=== PATIENT | male | born 1950 | race Caucasian/White ===

== ENCOUNTER 2020-03-21 07:48 | Outpatient (CLI) | payer MEDICARE, OTHER, SELFPAY ==
--- NOTE | 2020-03-21 | ECHO_ITS ---
Patient Info Name: Yuan Salvador Age: 69 years : 1950 Gender: Male Ht: 64 in Wt: 155 lbs BSA: 1.80 m2 HR: 78 bpm BP: 154 / 76 mmHg Heart Rhythm: Sinus Rhythm Technical Quality: Good Exam Date: 03/21/2020 8:26 AM Exam Location: [facility] Patient Status: Outpatient Admit Date: 03/21/2020 Staff Ordering Physician: Gemma Hanna MD Cloth Desizing Range Operator Chief: Ty Rivera, GILL, RT Attending Provider: Gemma Hanna MD Referring Physician: Cyndi AGUILAR; Exam Type: CA echo doppler color flow Study Info Indications I10 - Essential (primary) hypertension Complete two-dimensional, color flow and Doppler transthoracic echocardiogram is performed. Strain analysis performed. Summary 1. Complete two-dimensional, color flow and Doppler transthoracic echocardiogram is performed. 2. Left ventricular chamber dimension is normal. 3. Left ventricular systolic function is normal, estimated at 60-65%. 4. No regional wall motion abnormalities identified. 5. There is mild aortic valve sclerosis. Left Ventricle Left ventricular chamber dimension is normal. Left ventricular systolic function is normal, estimated at 60-65%. The left ventricular diastolic function is grade I diastolic dysfunction. No regional wall motion abnormalities identified. Right Ventricle Right ventricular chamber dimension is normal. Left Atria Left atrial chamber dimension is normal. Right Atria Right atrial chamber dimension is normal. Aortic Valve The aortic valve is trileaflet. There is mild aortic valve sclerosis. Pulmonic Valve The pulmonic valve is normal. Mitral Valve The mitral valve has normal leaflets. Tricuspid Valve The tricuspid valve leaflets are normal. Pericardium/Pleural The pericardium appears normal. Aorta The aortic root size at the sinus of Valsalva is normal. Left Ventricular Outflow Tract Name Value Normal LVOT 2D LVOT Diameter 2.0 cm LVOT Doppler LVOT Peak Gradient 4 mmHg LVOT Mean Gradient 2 mmHg LVOT VTI 19 cm LVOT VTI/AV VTI Ratio 0.7 LVOT Stroke Volume 59 ml LVOT CO 4.6 l/min LVOT CI 2.6 l/min/m2 Mitral Valve Name Value Normal MV Doppler MV Decel [place] 305 cm/s2 MV PHT 73 ms MV Area (PHT) 3.0 cm2 4.0-5.0 MV Diastolic Function MV E Peak Velocity 76 cm/s MV A Peak Velocity 93 cm/s MV E/A 0.8 MV Decel Time 250 ms M
== END 2020-03-21 07:49 | disposition home or self-care (01) ==
DX: E11.9 Type 2 diabetes mellitus without complications (principal); I35.0 Nonrheumatic aortic (valve) stenosis; I10 Essential (primary) hypertension
CPT/HCPCS: 93306

== ENCOUNTER 2020-05-05 11:33 | Outpatient (CLI) | payer MEDICARE, OTHER, SELFPAY | END 2020-05-05 11:34 | disposition home or self-care (01) | LOC: ANHCOVIDVC 11:33 | DX: Z23 Encounter for immunization (principal) | CPT/HCPCS: 0001A; 91300 ==

== ENCOUNTER 2020-05-26 11:29 | Outpatient (CLI) | payer MEDICARE, OTHER, SELFPAY | END 2020-05-26 11:30 | disposition home or self-care (01) | LOC: ANHCOVIDVC 11:29 | DX: Z23 Encounter for immunization (principal) | CPT/HCPCS: 0002A; 91300 ==

== ENCOUNTER 2021-01-13 10:35 | Emergency (ER) | payer MEDICARE, OTHER, SELFPAY ==
[2021-01-13 10:53] VITALS: BP 152/73; PULSE 74; RESP 18; TEMP 36.3; O2SAT 100
--- NOTE | 2021-01-13 11:11 | ED.URI ---
HPI - URI/Sore Throat General Chief Complaint: Upper Respiratory Infection Stated Complaint: nasal drainage,cough Source: patient and RN notes reviewed Limitations: no limitations History of Present Illness HPI Narrative: The vaccinated patient, non-smoker/nondrinker on several meds, presents with a week and a half history of yellow productive cough and nasal drip. No fever, sore throat, earache, loss of taste/smell, S OB, wheezing, CP, calf pain/edema, blood. Symptoms are mild, somewhat worse at night Related Data Home Medications Medication Instructions Recorded Confirmed aspirin 01/13/21 cetirizine mg 01/13/21 losartan 01/13/21 metformin mg PO 01/13/21 triamcinolone acetonide TOPICAL 01/13/21 Allergies Allergy/AdvReac Type Severity Reaction Status Date / Time balsam nile Allergy Unknown Unverified 08/25/14 11:57 doxycycline Allergy Unknown Unverified 08/25/14 11:57 formaldehyde Allergy Unknown Unverified 08/25/14 11:57 fusidic acid Allergy Unknown Unverified 08/25/14 11:57 nickel Allergy Unknown Unverified 08/25/14 11:58 gallates Allergy Unknown Uncoded 08/25/14 11:57 phenyl salicylate Allergy Unknown Uncoded 08/25/14 11:58 band aid AdvReac Unknown Uncoded 08/25/14 11:57 Review of Systems Review of Systems: General/Constitutional: No weight loss,fever Eyes: N0: Redness,discharge Ears/Nose/Throat: No: Epistaxis,ear discharge Respiratory: Denies: Hemoptysis Gastrointestinal: No Vomiting, Bleeding-rectal Skin: No Lumps, eruption Neurologic: No Focal Weakness,Sz Hematologic: Denies: Petechiae/Purpura Psychiatric: No: Suicida ideationl All Other Systems: Reviewed and Negative PMFSH Comments At time of signature, agree with nursing past medical, surgical, social and family history. There is no relevant family history pertinent to the presenting complaint Exam Narrative: General Appearance: Well appearing, Well nourished EYE: PERRLA, Conjunctiva clear Ears: Auditory canal normal, TM normal Nose: Rhinorrhea, Mucousal erythema Mouth/Throat: MM moist, Uvula midline, Pharyngeal erythema Neck: Supple, No adenopathy Respiratory: No respiratory distress, Breath sounds equal, Clear to auscultation Cardiovascular: RRR, No JVD Musculoskeletal: Non tender, Normal strength Skin: Warm, Dry Neurological: A&O x3, CN II-XII intact Psychiatric: Normal mood, Normal affect Course Vital Signs Vital signs: Vital Signs Temperature 97.4 F L 01/13/21 10:53 Pulse Rate 74 01/13/21 10:53 Respiratory Rate 18 01/13/21 10:53 Blood Pressure 152/73 H 01/13/21 10:53 Pulse Oximetry 100 01/13/21 10:53 Temperature 97.4 F L 01/13/21 10:53 Pulse Rate 74 01/13/21 10:53 Respiratory Rate 18 01/13/21 10:53 Blood Pressure 152/73 H 01/13/21 10:53 Pulse Oximetry 100 01/13/21 10:53 Discharge Plan Discharge Clinical Impression: Bronchitis Patient Disposition: Home, Self-Care Condition: Stable Instructions: Antibiotic Form, Acute Bronchitis (ED) Prescriptions: New benzonatate 100 mg capsule 100 mg PO TID PRN (Reason: cough) Qty: 20 RF: 2 codeine-guaifenesin 10-100 mg/5 mL liquid 7.5 ml PO Q6H PRN (Reason: cough) Qty: 118 RF: 0 cefuroxime axetil 500 mg tablet 500 mg PO Q12H Qty: 14 RF: 0 No Action losartan 50 mg tablet RF: 0 cetirizine 10 mg tablet RF: 0 aspirin 81 mg tablet,delayed release (DR/EC) RF: 0 triamcinolone acetonide 0.1 % ointment TOPICAL RF: 0 metformin 500 mg tablet extended release 24 hr PO RF: 0 Follow-up/Referrals: UNKNOWN,DOCTOR [Primary Care Provider] -
[2021-01-14 19:57] LABS: SARS-CoV-2 RNA PCR Negative
== END 2021-01-13 11:32 | disposition home or self-care (01) ==
PROVIDERS: Emergency Provider Emergency Medicine
DX: J40 Bronchitis, not specified as acute or chronic (principal); E78.00 Pure hypercholesterolemia, unspecified; M19.90 Unspecified osteoarthritis, unspecified site; Z20.822 Contact with and (suspected) exposure to COVID-19
CPT/HCPCS: 99213; C9803; G0463; U0003; U0005

== ENCOUNTER 2021-10-03 12:00 | Emergency (ER) | payer MEDICARE, OTHER, SELFPAY ==
--- NOTE | ~2021-10-03 | XR_ITS ---
EXAMINATION: XR chest 2V 10/03/2021 13:28 INDICATION: Cough and congestion. Covid positive. PROCEDURE: 2 view chest COMPARISON: No prior studies for comparison. FINDINGS: The lungs are clear. The cardiomediastinal silhouette is within normal limits. There are no pleural effusions. There is no pneumothorax suspected. IMPRESSION: 1: NO ACUTE CARDIOPULMONARY DISEASE. Reviewed, dictated and finalized at location B.
[2021-10-03 12:19] VITALS: BP 148/90; PULSE 86; RESP 16; TEMP 36.3; O2SAT 98
--- NOTE | 2021-10-03 12:24 | ED.URI ---
HPI - URI/Sore Throat General Chief Complaint: Upper Respiratory Infection Stated Complaint: cough,fever, stomach pain Source: patient, family, RN notes reviewed and old records reviewed Mode of arrival: ambulatory Limitations: no limitations History of Present Illness HPI Narrative: 71 year old male who presents to [facility] care with complaints of one week duration of cough, nasal congestion with drainage,nausea, sore throat, headaches and body aches. Patient states that he has been out of town for an [place] for 5 days and has not taken his Zyrtec medication since he forgot it at home. Patient reports that he has been running a fever around a 100 F since Saturday but has nasal congestion and drainage, cough prior to any temperature elevation.Patient reports that he has some dizziness when he stands for past few week and chest pain left upper chest around breast with certain movement and dyspnea at times. Patient reports that he has seen his doctor in past and had it checked out, denies any chest pain(pressure) for awhile. MD elicited complaint: fever, cough, sore throat, rhinorrhea and nasal congestion Pertinent past history: seasonal allergies Onset (ago): week(s) (1) Pain scale (0-10): 8 Able to tolerate fluids by mouth: Yes Treatments prior to arrival: other (cough medication) Related Data Home Medications Medication Instructions Recorded Confirmed cetirizine 10 mg tablet mg 01/13/21 losartan 50 mg tablet 01/13/21 metformin 500 mg tablet,extended mg PO 01/13/21 release 24 hr triamcinolone acetonide 0.1 % topical 01/13/21 topical ointment omeprazole 40 mg capsule,delayed 40 mg DIRECTED 10/03/21 10/03/21 release oxybutynin chloride 10 mg 10 mg PO DIRECTED 10/03/21 10/03/21 tablet,extended release 24 hr tamsulosin 0.4 mg capsule 0.4 mg PO DIRECTED 10/03/21 10/03/21 Allergies Allergy/AdvReac Type Severity Reaction Status Date / Time balsam nile Allergy Unknown Unverified 08/25/14 11:57 doxycycline Allergy Unknown Unverified 08/25/14 11:57 formaldehyde Allergy Unknown Unverified 08/25/14 11:57 fusidic acid Allergy Unknown Unverified 08/25/14 11:57 nickel Allergy Unknown Unverified 08/25/14 11:58 gallates Allergy Unknown Uncoded 08/25/14 11:57 phenyl salicylate Allergy Unknown Uncoded 08/25/14 11:58 band aid AdvReac Unknown Uncoded 08/25/14 11:57 Review of Systems Review of Systems: CONSTITUTIONAL: Positive for fever, chills, or sweats. EYES: Denies visual changes, redness, or discharge. ENT: Positive fro rhinorrhea, congestion, sore throat, no otalgia. CARDIOVASCULAR: Denies chest pain, palpitations, or edema. RESPIRATORY: Positive for cough some dyspnea stated with exertion. GASTROINTESTINAL: Denies abdominal pain, nausea, vomiting, or diarrhea. GENITOURINARY: Denies dysuria or hematuria. SKIN: Denies rash or itching. MUSCULOSKELETAL: Denies back pain, joint pain, positive for body aches NEUROLOGIC: positive for headache,no numbness, or weakness positive for fatigue PSYCHIATRIC: Denies anxiety or depression. All systems reviewed & are unremarkable except as noted in HPI and below PMFSH Past Medical History Medical History (Updated 10/03/21 @ 14:47 by Heather Brady NP) Diabetes GERD (gastroesophageal reflux disease) Hypertension Hypertrophy of prostate Kidney stone Surgical History Surgical History (Updated 10/03/21 @ 14:48 by Heather Brady NP) H/O foot surgery Social History Social History (Updated 10/03/21 @ 14:48 by Heather Brady NP) Smoking status: Never smoker Alcohol intake: current Alcohol use details: rarely 2X year Substance use: never Substance use type: does not use Living arrangements: with family Gender identity (if verbalized by the patient): Male Comments At time of signature, agree with nursing past medical, surgical, social and family history. There is no relevant family history pertinent to the presenting complaint Ex
== END 2021-10-03 14:13 | disposition home or self-care (01) ==
PROVIDERS: Emergency Provider Registered Nurse
DX: U07.1 COVID-19 (principal); E11.9 Type 2 diabetes mellitus without complications; K21.9 Gastro-esophageal reflux disease without esophagitis; I10 Essential (primary) hypertension; N40.0 Benign prostatic hyperplasia without lower urinary tract symptoms
CPT/HCPCS: 71046; 87426; 99213; C9803; G0463

== ENCOUNTER 2021-10-16 16:00 | Emergency (ER) | payer MEDICARE, OTHER, SELFPAY ==
--- NOTE | 2021-10-16 16:03 | ED.URI ---
HPI - URI/Sore Throat General Chief Complaint: Upper Respiratory Infection Stated Complaint: not feeling well Time Seen by Provider: 10/16/21 16:02 Source: patient Mode of arrival: ambulatory Limitations: no limitations History of Present Illness HPI Narrative: Mr. Salvador is a 71-year-old male patient presenting to the clinic today with complaints of not feeling well. He reports he had COVID approximately 2 weeks ago. He reports he still has a sore throat, headache, cough with a lot of phlegm production, dizziness, nausea, vomiting, diarrhea, and overall malaise and fatigue. Reports decrease in appetite as well. He denies any fever or chills. He reports his is at home with COVID at this time. Related Data Home Medications Medication Instructions Recorded Confirmed cetirizine 10 mg tablet 10 mg DIRECTED 01/13/21 10/16/21 losartan 50 mg tablet 50 mg DIRECTED 01/13/21 10/16/21 metformin 500 mg tablet,extended 500 mg PO TID 01/13/21 10/03/21 release 24 hr triamcinolone acetonide 0.1 % 0.1 applic topical DIRECTED 01/13/21 10/16/21 topical ointment omeprazole 40 mg capsule,delayed 40 mg DAILY 10/03/21 10/03/21 release oxybutynin chloride 10 mg 10 mg PO DAILY 10/03/21 10/03/21 tablet,extended release 24 hr tamsulosin 0.4 mg capsule 0.4 mg PO DAILY 10/03/21 10/03/21 betamethasone dipropionate 0.05 % 1 applic topical DIRECTED 10/16/21 10/16/21 topical cream calcium carb-magnesium carb 250 1 tablet PO DAILY 10/16/21 10/16/21 mg-300 mg tablet celecoxib 200 mg capsule (Celebrex) 200 mg PO DAILY 10/16/21 10/16/21 finasteride 5 mg tablet 5 mg DAILY 10/16/21 10/16/21 fluticasone propionate 50 1 spray intranasal DAILY 10/16/21 10/16/21 mcg/actuation nasal spray,suspension krill 1 cap PO DAILY 10/16/21 10/16/21 [id number] 300 mg-90 mg-24 mg-50 mg capsule (krill oil) Allergies Allergy/AdvReac Type Severity Reaction Status Date / Time balsam nile Allergy Unknown Verified 10/16/21 16:22 doxycycline Allergy Unknown Verified 10/16/21 16:22 formaldehyde Allergy Unknown Verified 10/16/21 16:22 fusidic acid Allergy Unknown Verified 10/16/21 16:22 nickel Allergy Unknown Verified 10/16/21 16:22 gallates Allergy Unknown Uncoded 10/16/21 16:22 phenyl salicylate Allergy Unknown Uncoded 10/16/21 16:22 band aid AdvReac Unknown Uncoded 10/16/21 16:22 Review of Systems Review of Systems: Pertinent positives per HPI. Patient denies any fever, chills, rash, visual changes, shortness of breath, chest pain, palpitations, constipation, abdominal pain, or any urinary issues. [facility] Past Medical History Medical History Diabetes GERD (gastroesophageal reflux disease) Hypertension Hypertrophy of prostate Kidney stone Surgical History Surgical History H/O foot surgery Social History Social History Smoking status: Never smoker Alcohol intake: current Alcohol use details: rarely 2X year Substance use: never Substance use type: does not use Gender identity (if verbalized by the patient): Male Comments At the time of my signature, I reviewed and agree with the nursing past medical, surgical, social, and family history. There is no relevant family history pertinent to the patient complaint. Exam Narrative: General: Well-developed, well nourished, in no apparent distress Head: Normocephalic, atraumatic Eyes: Pupils equally round and reactive to light bilaterally, EOM intact, sclera and conjunctive clear, no discharge, lids normal Ears: TMs intact and clear, ear canals clear, no drainage, grossly hearing normal. Nose: Nares patent, clear nasal discharge, moderate inflammation, no sinus tenderness. Mouth: Oral pharynx without lesions or masses, good dentition, MMM. Postnasal dri
[2021-10-16 16:12] VITALS: BP 148/72; PULSE 80; RESP 18; TEMP 36.2; O2SAT 99
[2021-10-16 16:38] LABS: Glucose Point of Care 130 mg/dl (65-105)
[2021-10-16 16:51] VITALS: BP 132/78; PULSE 78
[2021-10-16 16:53] VITALS: BP 139/72; PULSE 82
[2021-10-16 16:55] VITALS: BP 137/77; PULSE 73
== END 2021-10-16 17:15 | disposition home or self-care (01) ==
PROVIDERS: Emergency Provider Nurse Practitioner Family
DX: B34.9 Viral infection, unspecified (principal); Z86.16 Personal history of COVID-19; E11.9 Type 2 diabetes mellitus without complications; K21.9 Gastro-esophageal reflux disease without esophagitis; I10 Essential (primary) hypertension; N40.0 Benign prostatic hyperplasia without lower urinary tract symptoms; Z79.84 Long term (current) use of oral hypoglycemic drugs
CPT/HCPCS: 81003; 82948; 99213; G0463

== ENCOUNTER 2022-01-05 16:02 | Emergency (ER) | payer MEDICARE, OTHER, SELFPAY ==
[2022-01-05] VITALS (20 sets, daily range): BP systolic 121–136; BP diastolic 67–80; PULSE 76–87; RESP 16; TEMP 36.1; O2SAT 95–100
--- NOTE | ~2022-01-05 | XR_ITS ---
EXAMINATION: XR chest 2V DATE: 01/05/2022 17:16 INDICATION: Chest discomfort TECHNIQUE: PA and lateral views of the chest are obtained. COMPARISON: 10/03/2021 FINDINGS: The lungs are free of acute opacities. No pleural effusion or pneumothorax. The cardiomedia stinal silhouette is normal. There are bridging osteophytes at multiple levels in the spine, consiste nt with diffuse idiopathic skeletal hyperostosis (DISH). IMPRESSION: 1. No acute cardiopulmonary abnormality. Reviewed, dictated and finalized at location F. [facility] [employer]
--- NOTE | 2022-01-05 16:04 | ECG_ITS ---
Measurements Intervals [place] Rate: 81 P: 59 WA: 171 QRS: 37 QRSD: 88 T: 17 QT: 315 QTc: 366 Interpretive Statements SINUS RHYTHM CANNOT RULE OUT SEPTAL INFARCT, AGE INDETERMINATE BORDERLINE T WAVE ABNORMALITY- INFERIOR LEADS BASELINE WANDER- III, V3 ABNORMAL ECG NO PREVIOUS ECG AVAILABLE FOR COMPARISON Electronically Signed On 01-05-2022 16:26:59 [employer] by Jean-Pierre Pickering D.O.
[2022-01-05 16:20] LABS: Basophils Absolute Auto 0.1 K/mm3 (0.0-0.1); Basophils Percent Auto 0.6 % (0.2-1.2); Eosinophils Absolute Auto 0.1 K/mm3 (0-0.3); Eosinophils Percent Auto 0.6 % (0-4.4); Hematocrit 43.4 % (42.0-52.0); Hemoglobin 14.8 g/dL (14.0-18.0); Immature Granulocyte Absolute 0.03 K/mm3 (0.00-0.031); Immature Granulocyte Percent A 0.3 % (0-0.5); Lymphocytes Absolute Auto 1.72 K/mm3 (0.9-3.2); Lymphocytes Percent Auto 16.9 % (18.3-44.2); Mean Corpuscular HGB Conc 34.1 g/dl (32-36); Mean Corpuscular Hemoglobin 31.4 pg (26-34); Mean Corpuscular Volume 92.1 fl (80-100); Mean Platelet Volume 9.4 fl (7.4-10.4); Monocytes Absolute Auto 0.6 K/mm3 (0.1-0.6); Monocytes Percent Auto 5.7 % (2.6-8.5); Neutrophils Absolute Auto 7.7 K/mm3 (1.3-6.7); Neutrophils Percent Auto 75.9 % (45.5-73.1); Platelet Count Result 358 k/mm3 (150-375); Red Blood Count 4.71 M/mm3 (4.6-6.20); Red Cell Distribution Width 11.9 % (11.5-14.5); White Blood Count 10.2 K/mm3 (4.5-10.0)
[2022-01-05 16:34] LABS: Alanine Aminotransferase 36 U/L (6-50); Albumin Level 4.5 g/dL (3.5-5.1); Alkaline Phosphatase 74 U/L (38-126); Anion Gap 12 mmol/L (8-16); Aspartate Amino Transferase 29 U/L (17-59); Bilirubin,Total 0.7 mg/dL (0.2-1.3); Blood Urea Nitrogen 15 mg/dL (9-20); Calcium 9.7 mg/dL (8.4-10.2); Carbon Dioxide 24 mmol/L (22-30); Chloride 103 mmol/L (98-107); Estimated CRCL calculation 55 ml/min; Estimated Glomerular Filt Rate > 60; Glucose 132 mg/dL (65-110); INR 1.1; Lipase 73 U/L (23-300); Potassium 3.9 mmol/L (3.4-5.0); Prothrombin Time 13.6 Seconds (11.1-14.7); Sodium 139 mmol/L (137-145)
[2022-01-05 16:35] LABS: Partial Thromboplastin Time 30.3 SECONDS (22.3-36.8)
[2022-01-05 16:46] LABS: Troponin I < 0.012 ng/mL (0.000-0.034)
--- NOTE | 2022-01-05 17:35 | PC.NURSE ---
Dr. Forde at bedside to assess pt
--- NOTE | 2022-01-05 17:56 | PC.NURSE ---
ASA not administered. DC'd per verbal order from Dr. Forde
--- NOTE | 2022-01-05 18:32 | ED.GENADULT ---
HPI - General Adult General Chief complaint: Unspecified Stated complaint: int. chest vibrations - none currently Time Seen by Provider: 01/05/22 17:28 History of Present Illness HPI narrative: Patient is 71-year-old male who presents ER with intermittent discomfort for the last 3 weeks. First he felt some discomfort in his right arm and it felt like his cell phone was vibrating. He then felt similar symptoms a week later in his left arm. This last week he felt it in the center of his chest. Lasted for 1 second. It does not radiate. No nausea or vomiting. No dizziness. No diaphoresis. No history of heart disease. Called his PCP and they told him to come to the ER. Related Data Home Medications Medication Instructions Recorded Confirmed cetirizine 10 mg tablet 10 mg DIRECTED 01/13/21 10/16/21 losartan 50 mg tablet 50 mg DIRECTED 01/13/21 10/16/21 metformin 500 mg tablet,extended 500 mg PO TID 01/13/21 10/03/21 release 24 hr triamcinolone acetonide 0.1 % 0.1 applic topical DIRECTED 01/13/21 10/16/21 topical ointment omeprazole 40 mg capsule,delayed 40 mg DAILY 10/03/21 10/03/21 release oxybutynin chloride 10 mg 10 mg PO DAILY 10/03/21 10/03/21 tablet,extended release 24 hr tamsulosin 0.4 mg capsule 0.4 mg PO DAILY 10/03/21 10/03/21 betamethasone dipropionate 0.05 % 1 applic topical DIRECTED 10/16/21 10/16/21 topical cream calcium carb-magnesium carb 250 1 tablet PO DAILY 10/16/21 10/16/21 mg-300 mg tablet celecoxib 200 mg capsule (Celebrex) 200 mg PO DAILY 10/16/21 10/16/21 finasteride 5 mg tablet 5 mg DAILY 10/16/21 10/16/21 fluticasone propionate 50 1 spray intranasal DAILY 10/16/21 10/16/21 mcg/actuation nasal spray,suspension krill 1 cap PO DAILY 10/16/21 10/16/21 [id number]-[id number] 300 mg-90 mg-24 mg-50 mg capsule (krill oil) Allergies Allergy/AdvReac Type Severity Reaction Status Date / Time moisés dowd Allergy Unknown Verified 10/16/21 16:22 doxycycline Allergy Unknown Verified 10/16/21 16:22 formaldehyde Allergy Unknown Verified 10/16/21 16:22 fusidic acid Allergy Unknown Verified 10/16/21 16:22 nickel Allergy Unknown Verified 10/16/21 16:22 gallates Allergy Unknown Uncoded 10/16/21 16:22 phenyl salicylate Allergy Unknown Uncoded 10/16/21 16:22 band aid AdvReac Unknown Uncoded 10/16/21 16:22 Review of Systems Review of Systems: All systems reviewed & are unremarkable except as noted in HPI and below Constitutional: Constitutional: Denies chills and Denies fever(s) ENT: Denies nasal congestion and Denies sinus pain Respiratory: Respiratory: Denies cough, Denies dyspnea and Denies wheezing Gastrointestinal: Gastrointestinal: Denies abdominal pain, Denies nausea and Denies vomiting PMFSH Past Medical History Medical History Diabetes GERD (gastroesophageal reflux disease) Hypertension Hypertrophy of prostate Kidney stone Surgical History Surgical History H/O foot surgery Social History Social History Smoking status: Never smoker Alcohol intake: current Alcohol use details: rarely 2X year Substance use: never Substance use type: does not use Gender identity (if verbalized by the patient): Male Exam Narrative: GENERAL: Well-appearing, well-nourished, and in no acute distress. HEAD: Normocephalic, atraumatic. ENT: Mucous membranes moist. CHEST: Clear to auscultation. No respiratory distress. HEART: Regular rate and rhythm. Normal peripheral pulses. ABDOMEN: Soft, nontender, nondistended. EXTREMITIES: Normal range of motion. No edema. SKIN: Warm, dry, no rash. NEURO: Alert and oriented x3. PSYCH: Normal mood and affect. Course Course Emergency Course: Patient seems to be describing muscle fasciculations and noncardiac chest
[2022-01-05 19:48] LABS: Troponin I < 0.012 ng/mL (0.000-0.034)
== END 2022-01-05 20:45 | disposition home or self-care (01) ==
LOC: ANHED 19:40
PROVIDERS: Emergency Provider Emergency Medicine
DX: R25.3 Fasciculation (principal); E11.9 Type 2 diabetes mellitus without complications; I10 Essential (primary) hypertension; Z79.84 Long term (current) use of oral hypoglycemic drugs
CPT/HCPCS: 36415; 71046; 80053; 83690; 84484; 85025; 85610; 85730; 93005; 99284

== ENCOUNTER 2022-01-29 10:15 | Emergency (ER) | payer MEDICARE, OTHER, SELFPAY ==
[2022-01-29 10:30] VITALS: BP 151/78; PULSE 89; RESP 18; TEMP 37.2; O2SAT 99
--- NOTE | 2022-01-29 19:16 | ED.GENADULT ---
HPI - General Adult General Chief complaint: Upper Respiratory Infection Stated complaint: Cough Time Seen by Provider: 01/29/22 10:18 History of Present Illness HPI narrative: 71 y/o [place] male. PMHx .Presents to [facility] today with acute complaints of nasal congestion, sore throat, and productive cough. Manifestations present for > 1 week. No ROTHMAN, dizziness, focal weakness. No fevers, neck pain. No chest pain, palpitations, hemoptysis. Mild and intermittent dyspnea. Denies GI upset, N/V/D. ? Related Data Home Medications Medication Instructions Recorded Confirmed cetirizine 10 mg tablet 10 mg DIRECTED 01/13/21 01/29/22 losartan 50 mg tablet 50 mg DIRECTED 01/13/21 01/29/22 metformin 500 mg tablet,extended 500 mg PO TID 01/13/21 01/29/22 release 24 hr omeprazole 40 mg capsule,delayed 40 mg DAILY 10/03/21 01/29/22 release oxybutynin chloride 10 mg 10 mg PO DAILY 10/03/21 01/29/22 tablet,extended release 24 hr tamsulosin 0.4 mg capsule 0.4 mg PO DAILY 10/03/21 01/29/22 calcium carb-magnesium carb 250 1 tablet PO DAILY 10/16/21 01/29/22 mg-300 mg tablet celecoxib 200 mg capsule (Celebrex) 200 mg PO DAILY 10/16/21 01/29/22 finasteride 5 mg tablet 5 mg DAILY 10/16/21 01/29/22 fluticasone propionate 50 1 spray intranasal DAILY 10/16/21 01/29/22 mcg/actuation nasal spray,suspension krill 1 cap PO DAILY 10/16/21 01/29/22 [id number]-[id number] 300 mg-90 mg-24 mg-50 mg capsule (krill oil) Allergies Allergy/AdvReac Type Severity Reaction Status Date / Time balsam nile Allergy Unknown Other Verified 01/29/22 10:29 doxycycline Allergy Unknown Other Verified 01/29/22 10:29 formaldehyde Allergy Unknown Other Verified 01/29/22 10:29 fusidic acid Allergy Unknown Other Verified 01/29/22 10:29 nickel Allergy Unknown Other Verified 01/29/22 10:29 gallates Allergy Unknown Other Uncoded 01/29/22 10:29 phenyl salicylate Allergy Unknown Other Uncoded 01/29/22 10:29 band aid AdvReac Unknown Other Uncoded 01/29/22 10:29 Review of Systems Review of Systems: All systems reviewed & are unremarkable except as noted in HPI and below HENT: Nasal congestion, sore throat. RESP: Cough. PMFSH Past Medical History Medical History Diabetes GERD (gastroesophageal reflux disease) Hypertension Hypertrophy of prostate Kidney stone Surgical History Surgical History H/O foot surgery Social History Social History Smoking status: Never smoker Alcohol intake: current Alcohol use details: rarely 2X year Substance use: never Substance use type: does not use Gender identity (if verbalized by the patient): Male Exam Narrative: GENERAL: Well-appearing, well-nourished, and in no acute distress. HEAD: Normocephalic, atraumatic. EYES: PERRLA, conjunctivae clear, and EOMI. ENT: Mucous membranes moist. Purulent nasal discharge, no obstruction. Positive PND. Pharyngeal erythema, without swelling or exudative changes, Uvula midline. Palate soft. NECK: Supple. No lymphadenopathy CHEST: Clear to auscultation. No respiratory distress. HEART: Regular rate and rhythm. SKIN: Warm, dry, intact NEURO:? Alert and oriented x3. PSYCH: Normal mood and affect Course Course Level of Care: Express Care Visit Vital Signs Vital signs: Vital Signs Temperature 37.2 C 01/29/22 10:30 Pulse Rate 89 01/29/22 10:30 Respiratory Rate 18 01/29/22 10:30 Blood Pressure 151/78 H 01/29/22 10:30 Pulse Oximetry 99 01/29/22 10:30 Oxygen Delivery Room Air 01/29/22 10:30 Temperature 37.2 C 01/29/22 10:30 Pulse Rate 89 01/29/22 10:30 Respiratory Rate 18 01/29/22 10:30 Blood Pressure 151/78 H 01/29/22 10:30 Pulse Oximetry 99 01/29/22 10:30 Oxygen Delivery Room Air 01/29/22 10:30 Medical D
== END 2022-01-29 10:53 | disposition home or self-care (01) ==
PROVIDERS: Emergency Provider Nurse Practitioner Adult Health
DX: J40 Bronchitis, not specified as acute or chronic (principal); E11.9 Type 2 diabetes mellitus without complications; I10 Essential (primary) hypertension
CPT/HCPCS: 99213; G0463

== ENCOUNTER 2023-06-25 07:49 | Outpatient (CLI) | payer MEDICARE, OTHER, SELFPAY ==
--- NOTE | 2023-06-25 08:04 | ECG_ITS ---
SEE SCANNED COPY FOR CONFIRMED REPORT. MTDD
[2023-06-25 08:36] LABS: Anion Gap 5 mmol/L (4-12); Blood Urea Nitrogen 12 mg/dL (9-20); Calcium 9.5 mg/dL (8.4-10.2); Carbon Dioxide 28 mmol/L (22-30); Chloride 102 mmol/L (98-107); Estimated Glomerular Filt Rate > 60; Glucose 145 mg/dL (65-110); Potassium 3.9 mmol/L (3.4-5.0); Sodium 135 mmol/L (137-145)
== END 2023-06-25 07:50 | disposition home or self-care (01) ==
PROVIDERS: Anesthesiology; Visit Provider Urology
DX: Z01.818 Encounter for other preprocedural examination (principal); E11.9 Type 2 diabetes mellitus without complications; I10 Essential (primary) hypertension
CPT/HCPCS: 36415; 80048; 93005

== ENCOUNTER 2023-06-27 01:32 | Day surgery (SDC) | payer MEDICARE, OTHER, SELFPAY ==
[2023-06-20 13:03] VITALS: BMI 23.4
--- NOTE | 2023-06-20 13:33 | PC.NURSE ---
Report to the Outpatient Waiting Room, entrance under the green pavilion located off [facility], at time ___8:45AM____ on date __06/27/23 . Planned Procedure Time: __10:45AM . Time changes happen often and if your time is changed the preop area will call you the afternoon before. - You and your visitor will be asked to self-screen and do not enter if you have any COVID symptoms. - A mask is optional within the hospital at this time. Patients may have clear liquids (water, carbonated beverages, clear teas, apple juice) until 3 hours prior to surgery with a maximum of 20 ounces. - No food from midnight until time of surgery. Take the following medications with a SIP of water the morning of surgery: ____TRAMADOL NEEDED DO NOT STOP ANY OF YOUR OTHER PRESCRIPTION MEDICATIONS PRIOR TO SURGERY ?EXCEPT THE FOLLOWING Medications to discontinue per physician ____HOLD CELEBREX 7 DAYS PRE-OP PER DR MAYO- LAST DOSE 06/19/23 HOLD ALL VITAMINS/SUPPLEMENTS 3 DAYS PRE-OP PER ANESTHESIA- LAST DOSE 06/23/23 Please no make-up, nail namibian, hairspray, perfume, deodorant, or body powder the day of surgery. No jewelry (including any body piercings) or valuables the day of surgery, leave them at home. Please take a shower or bath the night before, or the morning of, surgery with an antibacterial soap. Wear comfortable, loose fitting clothing. - Jewelry must be removed prior to entering the operating room. Rings and piercings that are not removed may be cut off. - The hospital will not accept responsibility for valuables. - Please leave all valuables, including medications, at home the day of surgery. If you are going home after surgery, a licensed hazmat tanker driver must drive you home. - NO public transportation without another adult if you receive anesthesia. - We recommend that an adult stay with you for 24 hours following discharge. - We also recommend that you do not drive, make important decision, drink alcoholic beverages, or take any drugs that were not prescribed by your health care provider for at least 24 hours after your discharge time. Follow any additional instructions given to you from your surgeon. If you or anyone in your household have experienced Covid symptoms in the past week, please notify your surgeon or the nurse liaison at the phone number below for possible testing. Telephone instructions given to ___PATIENT & WIFE and asked if any additional questions and then verbalized understanding. Patient advised to call surgeon office or pre surgery nurse liaison [phone] if any additional questions.
[2023-06-27] VITALS (18 sets, daily range): BP systolic 107–165; BP diastolic 58–93; PULSE 68–84; RESP 10–20; TEMP 36.1–36.7; O2SAT 97–100
--- NOTE | 2023-06-27 06:17 | WPDHPUPDATE1 ---
History and Physical Update Update Date/Time: 06/27/23 06:17 History and Physical has been reviewed, including an updated exam of the patient. There are NO changes in the patient's condition. Risks, benefits, and alternatives have been discussed and questions answered. Patient agrees to proceed with procedure.
--- NOTE | 2023-06-27 09:08 | WPDANESEPPF ---
Anes - Initial Pre Proc Eval Procedure: Operation Date: 06/27/23 11:00 Proposed Procedures p Trans Urethral Resection Prostate - Toney Blackwell MD Date/Time: 06/27/23 09:08 Surgeon: Toney Blackwell MD Pre Op Diagnosis: BPH Patient Data Age: 73 Gender: M Height: 1.6 m Weight: 60 kg Allergies Allergy/AdvReac Type Severity Reaction Status Date / Time balsam nile Allergy Unknown Other Verified 06/20/23 12:42 doxycycline Allergy Unknown Other Verified 06/20/23 12:42 formaldehyde Allergy Unknown Other Verified 06/20/23 12:42 fusidic acid Allergy Unknown Other Verified 06/20/23 12:42 nickel Allergy Unknown Other Verified 06/20/23 12:42 gallates Allergy Unknown Other Uncoded 06/20/23 12:42 phenyl salicylate Allergy Unknown Other Uncoded 06/20/23 12:42 band aid AdvReac Unknown REDNESS/IRRITATION Uncoded 06/20/23 12:42 AT SITE Home Medications Medication Instructions Recorded Confirmed Type cetirizine 10 mg tablet 10 mg PO DAILY 01/13/21 06/20/23 History losartan 50 mg tablet 50 mg PO QAM 01/13/21 06/20/23 History metformin 500 mg tablet,extended 1,500 mg PO QAM 01/13/21 06/20/23 History release 24 hr omeprazole 40 mg capsule,delayed 40 mg PO DAILY 10/03/21 06/20/23 History release tamsulosin 0.4 mg capsule 0.4 mg PO DAILY 10/03/21 06/20/23 History calcium carb-magnesium carb 250 1 tablet PO DAILY 10/16/21 06/20/23 History mg-300 mg tablet celecoxib 200 mg capsule (Celebrex) 200 mg PO DAILY PRN Pain 10/16/21 06/20/23 History finasteride 5 mg tablet 5 mg PO DAILY 10/16/21 06/20/23 History fluticasone propionate 50 1 spray intranasal DAILY 10/16/21 06/20/23 History mcg/actuation nasal spray,suspension atorvastatin 40 mg tablet 40 mg PO DAILY 06/20/23 06/20/23 History betamethasone dipropionate 0.05 % 1 applic topical BID PRN Itching 06/20/23 06/20/23 History topical cream cyanocobalamin (vitamin B-12) 1,000 mcg PO DAILY 06/20/23 06/20/23 History 1,000 mcg tablet fluocinonide 0.05 % topical 1 applic topical BID PRN Itching 06/20/23 06/20/23 History ointment hydrocortisone 2.5 % topical cream 2.5 applic topical BID PRN Rectal 06/20/23 06/20/23 History with perineal applicator Discomfort (Proctosol HC) lactobacillus combination no.8 3 3 cell PO DAILY 06/20/23 06/20/23 History billion cell capsule solifenacin 10 mg tablet 10 mg PO DAILY 06/20/23 06/20/23 History tramadol 50 mg tablet 50 mg PO Q6H PRN Pain 06/20/23 06/20/23 History triamcinolone acetonide 0.1 % 1 applic topical BID PRN Itching 06/20/23 06/20/23 History topical cream Patient hx anesthesia problems: none Family hx anesthesia problems: none Results Review: All pre-operative results and documents have been reviewed as part of the pre-operative evaluation. [facility] [place] Past Medical History Medical History Diabetes GERD (gastroesophageal reflux disease) Hypertension Hypertrophy of prostate Kidney stone Surgical History Surgical History H/O foot surgery Social History Social History Smoking status: Never smoker Alcohol intake: current Alcohol use details: rarely 2X year Substance use: never Substance use type: does not use Living arrangements: with family Additional living arrangements comments: Gender identity (if verbalized by the patient): Male Spiritual care concerns: No Anes - Eval Final PreProcedure Day of Procedure 06/27/23 09:08 Patient weight: normal Heart: regular rate and rhythm Lungs: clear to auscultation Airway: Mallampati scale class II Neurological: alert and oriented Last oral intake: >/= 8 hours ASA classification: III Emergent: no Anesthetic plan: proceed Anesthesia type and monitoring: general LMA and standard monitoring Results Review: All pre-operative results and documents have b
[2023-06-27] MEDS: LACTATED RINGERS 1,000 ML 30 ML IV CONT (09:30)
[2023-06-27 09:37] LABS: Glucose Point of Care 140 mg/dl (65-105)
[2023-06-27] MEDS: ceFAZolin 2 GM/D5W 50 ML 2 GM/50 ML BAG IVPB (10:04)
[2023-06-27] MEDS: LIDOCAINE HCL 2% GEL UROJET 10 ML PKG MUCOUS MEM (10:25)
--- NOTE | 2023-06-27 10:52 | W.PM.PROC2 ---
Procedure Note - Detailed Date of Procedure 06/27/23 Pre-op Diagnosis BPH Post-op Diagnosis Same Procedure Performed TURP Surgeon Toney Blackwell MD Anesthesia General Description of Procedure The patient was brought to the operative suite where he is prepped and draped in routine sterile fashion while in the dorsal lithotomy position after the uneventful induction of a general LMA anesthetic. A 27 [place] resectoscope sheath was placed into his bladder. He had no urethral strictures. The patient had trilobar hyperplasia with a moderate median lobe. The bladder itself was endoscopically normal, showing no mucosal hyperemia, intravesical neoplasm or foreign bodies. There was a single, orthotopic ureteral orifice bilaterally. These orifices were identified and preserved throughout the remainder of the procedure. Attention was first turned to resection of the median lobe. This resection was undertaken from the bladder neck to the verumontanum and carried out until the transverse fibers of the bladder neck were identified. The left lateral lobe was then resected starting at the 6 o'clock position, working counter clockwise to the 12 o'clock position. Again, resection was carried out from the bladder neck to the verumontanum until the capsular fibers of the prostate were identified. The right lateral lobe was resected in a similar fashion starting at the 6 o'clock position working clockwise to the 12 o'clock position and carried out until the capsular fibers of the prostate were identified. Apical tissue was then circumferentially resected. All chips were evacuated from the bladder using an Evento evacuator. Hemostasis was obtained with electric cautery. The ureteral orifices were again inspected and found to be without injury. Estimated blood loss throughout this procedure was 75cc. The patient was taken to recovery room having tolerated this well. Drains Yes Packing No Pathology Yes Complications No immediate complications
[2023-06-27 11:14] LABS: Glucose Point of Care 162 mg/dl (65-105)
[2023-06-27] MEDS: fentaNYL CITRATE INJ (*CRX) 100 MCG/2 ML VIAL 25 MCG IV PUSH ×4 (11:36→12:01)
--- NOTE | 2023-06-27 13:26 | ADMGEN ---
This patient, Yuan Salvador, was admitted to 3 [facility] Surg Room 315-01. Patient/family oriented to hospital policies and general routines including ID bracelet, bed and alarms, visiting hours, pain management, procedures, bathroom and other care routines, personal items, smoking policy, room service/diet, and visiting hours. Information on how to activate the Rapid Response Team has been discussed. Patient/Family are encouraged to report perceived risks to care and to ask questions if they do not understand what they are told or what they should do.
[2023-06-27] MEDS: MORPHINE SULFATE (*CRX) 2 MG/ML INJ IV PUSH (13:38)
[2023-06-27] MEDS: ATORVASTATIN 40 MG TABLET PO (13:47)
[2023-06-27] MEDS: HYOSCYAMINE SULFATE 0.125 MG TABLET SUBLINGUAL ×2 (15:16→20:15)
[2023-06-27 16:25] LABS: Glucose Point of Care 123 mg/dl (65-105)
[2023-06-27] MEDS: BISACODYL 5 MG TABLET EC PO (18:34)
[2023-06-27] MEDS: DOCUSATE SODIUM 100 MG CAPSULE PO (18:34)
[2023-06-27] MEDS: ceFAZolin 1 GM/NS 50 ML 1 GM/50 ML BAG IVPB (18:35)
[2023-06-27 19:23] LABS: Glucose Point of Care 241 mg/dl (65-105)
[2023-06-27] MEDS: HYDROcodone/acetaminophen (*CRX) 5-325 MG TABLET 1 TAB PO (20:15)
[2023-06-27] MEDS: MELATONIN 5 MG TABLET PO (20:56)
[2023-06-28] MEDS: HYDROcodone/acetaminophen (*CRX) 5-325 MG TABLET 1 TAB PO ×2 (01:03→08:14)
[2023-06-28] MEDS: ceFAZolin 1 GM/NS 50 ML 1 GM/50 ML BAG IVPB (01:04)
[2023-06-28] MEDS: ZOLPIDEM TARTRATE (*CRX) 5 MG TABLET PO (01:23)
[2023-06-28 02:12] VITALS: PULSE 79; RESP 11
[2023-06-28] MEDS: HYOSCYAMINE SULFATE 0.125 MG TABLET SUBLINGUAL (03:49)
[2023-06-28 04:13] VITALS: BP 105/71; PULSE 69; RESP 18; TEMP 36.8; O2SAT 99
[2023-06-28 06:04] LABS: Hematocrit 39.2 % (42.0-52.0); Hemoglobin 13.2 g/dL (14.0-18.0)
--- NOTE | 2023-06-28 06:11 | WPDUROPN2 ---
Progress Note: A&P Assessment and Plan (1) Hypertrophy of prostate: Code(s): N40.0 - Benign prostatic hyperplasia without lower urinary tract symptoms Status: Acute Assessment and Plan: Doing well POD #1 TURP Stop CBI now / voiding trial later this morning if urine remains clear Anticipate discharge this afternoon Subjective Subjective Date/Time Seen: 06/28/23 06:11 Interval history: Comfortable, slept well Review of Systems Cardiovascular: Cardiovascular: Denies chest pain, Denies lightheadedness, Denies palpitations and Denies dyspnea Respiratory: Respiratory: Denies dyspnea Gastrointestinal: Gastrointestinal: Denies diarrhea, Denies nausea and Denies vomiting Genitourinary: Genitourinary: Denies hematuria and Denies dysuria Endocrine: Endocrine: Denies palpitations Exam Const: General: no acute distress Resp: Effort & Inspection: normal respiratory effort GI: Inspection: non-distended GI Palp: No abdominal tenderness and No Guarding due to palpation present (GI) Auscultation: normal bowel sounds Objective Data Vital Signs Vital Signs: Vital Signs - 24 hr 06/27/23 09:26 06/27/23 10:58 06/27/23 11:13 Temperature 97 F L 97.0 F L Pulse Rate 84 73 71 Respiratory Rate 14 10 L 12 Blood Pressure 139/83 132/81 157/89 H Pulse Oximetry 100 100 100 Oxygen Delivery Room Air Simple Face Mask Simple Face Mask Oxygen Flow Rate 8 8 06/27/23 11:27 06/27/23 11:18 06/27/23 11:30 Temperature Pulse Rate 72 72 Respiratory Rate 16 16 Blood Pressure 165/83 H 151/80 H Pulse Oximetry 100 100 100 Oxygen Delivery Room Air Room Air Room Air Oxygen Flow Rate 06/27/23 11:45 06/27/23 12:00 06/27/23 12:15 Temperature Pulse Rate 73 75 74 Respiratory Rate 16 18 20 Blood Pressure 151/82 H 152/90 H 152/93 H Pulse Oximetry 100 100 100 Oxygen Delivery Room Air Room Air Room Air Oxygen Flow Rate 06/27/23 12:25 06/27/23 12:55 06/27/23 13:10 Temperature 97.1 F L 97.2 F L Pulse Rate 68 76 74 Respiratory Rate 12 14 14 Blood Pressure 136/60 126/74 136/70 Pulse Oximetry 99 99 99 Oxygen Delivery Room Air Oxygen Flow Rate 06/27/23 13:40 06/27/23 14:40 06/27/23 18:30 Temperature 97.5 F L 97.5 F L 97.7 F Pulse Rate 71 73 75 Respiratory Rate 16 16 16 Blood Pressure 131/65 130/62 120/58 L Pulse Oximetry 100 100 97 Oxygen Delivery Oxygen Flow Rate 06/27/23 20:00 06/27/23 21:16 06/27/23 20:00 Temperature 98.0 F Pulse Rate 79 80 Respiratory Rate 20 13 Blood Pressure 120/58 L Pulse Oximetry 98 97 Oxygen Delivery CPAP Room Air Oxygen Flow Rate 06/27/23 23:28 06/28/23 02:12 06/28/23 04:13 Temperature 97.9 F 98.2 F Pulse Rate 71 79 69 Respiratory Rate 18 11 L 18 Blood Pressure 107/62 105/71 Pulse Oximetry 100 99 Oxygen Delivery CPAP Oxygen Flow Rate Intake/Output Intake/Output: Intake & Output 06/25/23 06/26/23 06/27/23 06/28/23 23:59 23:59 23:59 23:59 Intake Total 640 Output Total 3850 Balance -3210 Meds/Results Medications: Active Medications Generic Name Dose Route Start Last Admin Trade Name Freq PRN Reason Stop Dose Admin Hydrocodone Bitart/Acetaminophen 1 tab 06/27/23 12:28 06/28/23 01:03 Hydrocodone/Acetaminophen (*Crx) 5-325 Mg Tablet PO 1 tab Q4H PRN Administration Pain Rated 1-6 Atorvastatin Calcium 40 mg 06/27/23 12:40 06/27/23 13:47 Atorvastatin 40 Mg Tablet PO 40 mg DAILY AMBER Administration Cephalexin HCl 500 mg 06/28/23 09:00 Cephalexin 500 Mg Capsule PO QID AMBER Dextrose 12.5 gm 06/27/23 11:00 Dextrose 50% 25 Gm/50 Ml Syringe IV PUSH PRN PRN Hypoglycemia Protocol Docusate Sodium 100 mg 06/27/23 17:00 06/27/23 18:34 Docusate Sodium 100 Mg Capsule PO 100 mg BID AMBER Administration Fentanyl Citrate 25 mcg 06/27/23 09:07 06/27/23 12:01 Fentanyl Citrate Inj (*Crx) 100 Mcg/2 Ml Vial IV PUSH 25 mcg Q2M PRN
[2023-06-28 06:16] LABS: Anion Gap 3 mmol/L (4-12); Blood Urea Nitrogen 12 mg/dL (9-20); Calcium 9.4 mg/dL (8.4-10.2); Carbon Dioxide 29 mmol/L (22-30); Chloride 104 mmol/L (98-107); Estimated CRCL calculation 51 ml/min; Estimated Glomerular Filt Rate > 60; Glucose 130 mg/dL (65-110); Potassium 3.8 mmol/L (3.4-5.0); Sodium 136 mmol/L (137-145)
[2023-06-28 07:26] LABS: Glucose Point of Care 119 mg/dl (65-105)
[2023-06-28] MEDS: LOSARTAN POTASSIUM 50 MG TABLET PO (08:14)
[2023-06-28] MEDS: CEPHALEXIN 500 MG CAPSULE PO ×2 (08:14→12:50)
[2023-06-28] MEDS: DOCUSATE SODIUM 100 MG CAPSULE PO (08:14)
[2023-06-28] MEDS: ATORVASTATIN 40 MG TABLET PO (08:14)
[2023-06-28] MEDS: metFORMIN HCL XR 500 MG TAB.SR.24H 1500 MG PO (08:14)
[2023-06-28] MEDS: PANTOPRAZOLE 40 MG TABLET PO (08:14)
[2023-06-28] MEDS: LORATADINE 10 MG TABLET PO (08:14)
[2023-06-28] MEDS: FLUTICASONE PROPIONATE 0.05% NA SPR 16 GM BTL (*BKC) 1 SPRAY NASAL (08:15)
[2023-06-28 10:13] VITALS: BP 128/78; PULSE 71; RESP 18; TEMP 36.3; O2SAT 98
[2023-06-28 11:26] LABS: Glucose Point of Care 182 mg/dl (65-105)
--- NOTE | 2023-06-28 12:19 | PM.DS ---
DS: Admitting Diagnosis Discharge Date 05/29/2023 Admitting Diagnosis BPH DS: Discharge Diagnosis Discharge Diagnosis (1) BPH loc w urin obs/LUTS: Code(s): N40.1 - Benign prostatic hyperplasia with lower urinary tract symptoms Status: Acute DS: Summary Hospital Course Hospital Course: This patient with longstanding prostatism refractory for medical management was admitted on the morning of his planned TURP. The procedure was undertaken on that same day in an uneventful fashion. His post-operative course was, likewise, uneventful. On the evening of the procedure he was tolerating a diet. On POD#1 his urine was clear on CBI. The urine remained clear and, therefore, the catheter was removed late morning. The patient was observed for several hours, until he demonstrated he could void effectively without significant hematuria. He was discharged with careful instruction on limiting physical activity x2 weeks and plans to f/ in 2-3 weeks. At discharge he was comfortable and tolerating a diet. Time Spent with Patient Time attestation: Total time spent providing and/or coordinating discharge services: DS: Data Data Completed and Pending Pending studies at discharge: Pending at discharge 06/27/23 10:51 Surgical [PTH] Routine Labs on day of discharge: Labs from last 24 hours 06/28/23 06/28/23 06/28/23 11:15 07:21 05:33 Hgb 13.2 L Hct 39.2 L Sodium 136 L Potassium 3.8 Chloride 104 Carbon Dioxide 29 Anion Gap 3 L BUN 12 Creatinine 0.90 Estim Creat Clear Calc 51 Estimated GFR > 60 Glucose 130 H POC Capillary Glucose 182 H 119 H Calcium 9.4 06/27/23 06/27/23 19:19 16:19 Hgb Hct Sodium Potassium Chloride Carbon Dioxide Anion Gap BUN Creatinine Estim Creat Clear Calc Estimated GFR Glucose POC Capillary Glucose 241 H 123 H Calcium Discharge Plan Discharge Patient Disposition: Home, Self-Care Discharge Instructions: 1) Activity: No lifting/straining >15lbs. x2 weeks. 2) Diet: Resume normal pre-admission diet. 3) Follow-up: 2-3 weeks / call office for appointment ([phone]). Stand Alone Forms: General Discharge Instructions Discharge Orders: Discharge Order (Routine); Ordered 06/28/23 Ordered By: Toney Blackwell Discharge Medications: New hydrocodone-acetaminophen 5-325 mg tablet 1 - 2 tablet PO Q6H PRN (Reason: pain) Qty: 20 0RF cephalexin 500 mg capsule 500 mg PO Q8H Qty: 9 0RF docusate sodium [Colace] 100 mg capsule 100 mg PO DAILY Qty: 30 0RF Continued losartan 50 mg tablet 50 mg PO QAM cetirizine 10 mg tablet 10 mg PO DAILY metformin 500 mg tablet extended release 24 hr 1,500 mg PO QAM fluticasone propionate 50 mcg/actuation [place],Suspension 1 spray INTRANASAL DAILY Rx Instructions: administer into each nostril calcium carb-magnesium carb 250-300 mg Tablet 1 tablet PO DAILY omeprazole 40 mg capsule,delayed release(DR/EC) 40 mg PO DAILY atorvastatin 40 mg tablet 40 mg PO DAILY fluocinonide 0.05 % Ointment 1 applic TOPICAL BID PRN (Reason: Itching) tramadol 50 mg Tablet 50 mg PO Q6H PRN (Reason: Pain) triamcinolone acetonide 0.1 % cream 1 applic TOPICAL BID PRN (Reason: Itching) hydrocortisone [Proctosol HC] 2.5 % cream with perineal applicator 2.5 applic topical BID PRN (Reason: Rectal Discomfort) betamethasone dipropionate 0.05 % cream 1 applic TOPICAL BID PRN (Reason: Itching) cyanocobalamin (vitamin B-12) 1,000 mcg Tablet 1,000 mcg PO DAILY lactobacillus combination no.8 3 billion cell Capsule 3 cell PO DAILY Held celecoxib [Celebrex] 200 mg Capsule 200 mg PO DAILY PRN (Reason: Pain) Hold Instructions: Resume on 07/01/23. Discontinued finasteride 5 mg tablet 5 mg PO DAILY tamsulosin 0.4 mg capsule 0.4 mg PO DAILY
[2023-06-28] MEDS: MAGNESIUM CITRATE 300 ML BTL 150 ML PO (12:50)
== END 2023-06-28 13:55 | disposition home or self-care (01) ==
LOC: ANHSURGERY 08:35 → ANH3MEDSUR 12:33
PROVIDERS: Visit Provider Urology
PROC: 0VT08ZZ Resection of Prostate, Via Natural or Artificial Opening Endoscopic (ICD-10-PCS; CPT 52601; principal; 2023-06-27 11:00)
DX: N40.1 Benign prostatic hyperplasia with lower urinary tract symptoms (principal); R33.8 Other retention of urine; I10 Essential (primary) hypertension; E11.9 Type 2 diabetes mellitus without complications; K21.9 Gastro-esophageal reflux disease without esophagitis; Z79.84 Long term (current) use of oral hypoglycemic drugs
CPT/HCPCS: 52601; 36415; 80048; 82948; 85014; 85018; 88305; A9270; C1758; J0690; J2270; J3010; J7120

== ENCOUNTER 2023-11-24 13:08 | Emergency (ER) | payer MEDICARE, OTHER, SELFPAY ==
--- NOTE | 2023-11-24 13:22 | ED.GENADULT ---
HPI - General Adult General Chief complaint: Abdominal Pain Stated complaint: chills,bodyache Time Seen by Provider: 11/24/23 13:23 Source: patient, RN notes reviewed and old records reviewed Mode of arrival: ambulatory Limitations: no limitations History of Present Illness HPI narrative: 73 year old male presents to the [facility] with his family member. Patient reports a 5 day history of body pain, reports 9-10/10, chills, fevers. Fevers as high as 101 Developed generalized abdominal pain that cannot be reproduced with palpation 2 days ago. Reports having diarrhea 3 to 4 times a day reports that it is completely liquid. Family member reports that they give ibuprofen and Tylenol, symptoms returned after 6 hours after medication was given. Reports decreased appetite States he did eat this morning. Denies any cough, chest congestion, chest pain. Denies sinus congestion, sore throat. Related Data Home Medications Medication Instructions Recorded Confirmed cetirizine 10 mg tablet 10 mg PO DAILY 01/13/21 11/24/23 losartan 50 mg tablet 50 mg PO QAM 01/13/21 11/24/23 omeprazole 40 mg capsule,delayed 40 mg PO DAILY 10/03/21 11/24/23 release calcium carb-magnesium carb 250 1 tablet PO DAILY 10/16/21 11/24/23 mg-300 mg tablet celecoxib 200 mg capsule (Celebrex) 200 mg PO DAILY PRN Pain 10/16/21 11/24/23 fluticasone propionate 50 1 spray intranasal DAILY 10/16/21 11/24/23 mcg/actuation nasal spray,suspension atorvastatin 40 mg tablet 40 mg PO DAILY 06/20/23 11/24/23 betamethasone dipropionate 0.05 % 1 applic topical BID PRN Itching 06/20/23 11/24/23 topical cream cyanocobalamin (vitamin B-12) 1,000 mcg PO DAILY 06/20/23 11/24/23 1,000 mcg tablet fluocinonide 0.05 % topical 1 applic topical BID PRN Itching 06/20/23 11/24/23 ointment hydrocortisone 2.5 % topical cream 2.5 applic topical BID PRN Rectal 06/20/23 11/24/23 with perineal applicator Discomfort (Proctosol HC) lactobacillus combination no.8 3 3 cell PO DAILY 06/20/23 11/24/23 billion cell capsule tramadol 50 mg tablet 50 mg PO Q6H PRN Pain 06/20/23 11/24/23 triamcinolone acetonide 0.1 % 1 applic topical BID PRN Itching 06/20/23 11/24/23 topical cream blood sugar diagnostic (FreeStyle 11/24/23 11/24/23 Lite Strips) blood-glucose meter (FreeStyle 11/24/23 11/24/23 [place] Lite kit) empagliflozin 10 mg tablet 10 mg PO DAILY 11/24/23 11/24/23 (Jardiance) finasteride 5 mg tablet 5 mg PO DAILY 11/24/23 11/24/23 lancets 28 gauge (FreeStyle 11/24/23 11/24/23 Lancets) sildenafil 25 mg tablet 25 mg PO DAILY 11/24/23 11/24/23 sitagliptin phos 100 mg-metformin 1 tablet PO DAILY 11/24/23 11/24/23 ER 1,000 mg tablet,extend rel 24h mp (Janumet XR) Allergies Allergy/AdvReac Type Severity Reaction Status Date / Time balsa nile Allergy Unknown Other Verified 11/24/23 13:16 doxycycline Allergy Unknown Other Verified 11/24/23 13:16 formaldehyde Allergy Unknown Other Verified 11/24/23 13:16 fusidic acid Allergy Unknown Other Verified 11/24/23 13:16 nickel Allergy Unknown Other Verified 11/24/23 13:16 gallates Allergy Unknown Other Uncoded 11/24/23 13:16 phenyl salicylate Allergy Unknown Other Uncoded 11/24/23 13:16 band aid AdvReac Mild REDNESS/IRRITATION Uncoded 11/24/23 13:16 AT SITE Review of Systems Review of Systems: All systems reviewed & are unremarkable except as noted in HPI and below Constitutional: Constitutional: Reports as per HPI, Reports body ache(s), Reports chills, Reports fatigue, Reports fever(s), Denies headache(s) and Reports poor appetite Eyes: Eyes: Reports no additional eye complaints ENT: Reports system reviewed and no additional complaints, except as documented Cardiovascular: Cardiovascular: Reports no additional cardiovascular complaints, Denies chest pain and Denies dyspnea Respiratory: Respiratory: Reports no additional respiratory complaints, Denies chest congestion, Denies cough and Denies dyspnea Gas
[2023-11-24 13:25] VITALS: BP 138/65; PULSE 87; RESP 16; TEMP 36.3; O2SAT 99
[2023-11-24 13:51] LABS: EDCOVIDSCREEN Negative (Negative)
[2023-11-24 13:52] LABS: EDINFLUASCREEN Negative (Negative); EDINFLUBSCREEN Negative (Negative)
== END 2023-11-24 13:48 | disposition short-term general hospital (02) ==
PROVIDERS: Emergency Provider Nurse Practitioner
DX: R10.9 Unspecified abdominal pain (principal); R50.9 Fever, unspecified; Z20.822 Contact with and (suspected) exposure to COVID-19; E11.9 Type 2 diabetes mellitus without complications; I10 Essential (primary) hypertension; N40.0 Benign prostatic hyperplasia without lower urinary tract symptoms; K21.9 Gastro-esophageal reflux disease without esophagitis
CPT/HCPCS: 87426; 87804; 99213; G0463

== ENCOUNTER 2023-11-24 14:06 | Emergency (ER) | payer MEDICARE, OTHER, SELFPAY ==
--- NOTE | ~2023-11-24 | XR_ITS ---
EXAMINATION: XR chest 2V Exam Date/Time: 11/24/2023 17:44 CDT HISTORY: chills Comparison: 12/26/2021. RESULT: Lines, tubes, and devices: None. Lungs and pleura: Mild senescent change, otherwise clear. Cardiomediastinal silhouette: Stable. Other: No acute osseous or upper abdominal finding. IMPRESSION: No acute cardiopulmonary process. Reviewed, dictated and finalized at location K.
--- NOTE | ~2023-11-24 | CT_ITS ---
EXAMINATION: CT abdomen pelvis w con DATE: 11/24/2023 20:35 INDICATION: Abd pain, n/d TECHNIQUE: Computed tomography (CT) of the abdomen and pelvis was performed with 100 mL Omnipaque-350 intravenous contrast. Automated exposure control and iterative reconstruction technique were employe d. The dose-length product was 261.78 mGy-cm. COMPARISON: None. FINDINGS: Lower thorax: Coronary artery calcification. Mild bilateral dependent atelectasis/scar. Liver: Normal. Biliary/Gallbladder: Gallbladder is normal. No bile duct dilation. Pancreas: No mass or duct dilation. Spleen: Normal. Adrenals:No mass. Kidneys: No suspicious mass, obstructing stone, or hydronephrosis. GI tract: Mild distal esophageal and gastric wall edema No small or large bowel dilation. Normal appe ndix. Diverticulosis without diverticulitis. Mesentery/Peritoneum: No ascites, mass, or free air. Retroperitoneum: No mass. Pelvis: Moderate bladder wall thickening. Marked prostatomegaly. Soft Tissues: Soft tissues and body wall unremarkable. Bones: No acute osseous finding. IMPRESSION: Mild esophagitis/gastritis. Cystitis versus chronic bladder wall thickening from outlet obstruction. Reviewed, dictated and finalized at location K.
[2023-11-24 14:10] VITALS: BP 158/68; PULSE 94; RESP 16; TEMP 36.9; O2SAT 99
--- NOTE | 2023-11-24 17:18 | ED.FEVER ---
HPI - Fever General Chief Complaint: Fever Stated Complaint: fever, chills Time Seen by Provider: 11/24/23 19:19 Focused HPI: 73 y/o M with a hcx of HTN, DM, HLD presents to the ED for chills x1 weeks. He is reporting associated generalized abdominal pain, n/d. States he has been having 2-3 episodes of watery diarrhea daily since the onset of sx. Reports fever of 99-101 at home. Has been taking aspirin with some improvememt. Denies chest pain, dyspnea, vomiting, cough, congestion, dysuria, hematuria. GENERAL: Well-appearing, well-nourished, and in no acute distress. HEAD: Normocephalic, atraumatic. CHEST: Clear to auscultation. ?No respiratory distress. HEART: Regular rate and rhythm.? NEURO: ?Alert and oriented x3. Patient screened in triage and initial orders placed.? ?Additional care and disposition to be based upon?diagnostic testing and treatment. History of Present Illness HPI Narrative: 73 y/o M with a hcx of HTN, DM, HLD presents to the ED for chills x1 weeks. He is reporting associated generalized abdominal pain, n/d. States he has been having 2-3 episodes of watery diarrhea daily since the onset of sx. Reports fever of 99-101 at home. Has been taking aspirin with some improvememt. Denies chest pain, dyspnea, vomiting, cough, congestion, dysuria, hematuria. Related Data Home Medications Medication Instructions Recorded Confirmed cetirizine 10 mg tablet 10 mg PO DAILY 01/13/21 11/24/23 losartan 50 mg tablet 50 mg PO QAM 01/13/21 11/24/23 omeprazole 40 mg capsule,delayed 40 mg PO DAILY 10/03/21 11/24/23 release calcium carb-magnesium carb 250 1 tablet PO DAILY 10/16/21 11/24/23 mg-300 mg tablet celecoxib 200 mg capsule (Celebrex) 200 mg PO DAILY PRN Pain 10/16/21 11/24/23 fluticasone propionate 50 1 spray intranasal DAILY 10/16/21 11/24/23 mcg/actuation nasal spray,suspension atorvastatin 40 mg tablet 40 mg PO DAILY 06/20/23 11/24/23 betamethasone dipropionate 0.05 % 1 applic topical BID PRN Itching 06/20/23 11/24/23 topical cream cyanocobalamin (vitamin B-12) 1,000 mcg PO DAILY 06/20/23 11/24/23 1,000 mcg tablet fluocinonide 0.05 % topical 1 applic topical BID PRN Itching 06/20/23 11/24/23 ointment hydrocortisone 2.5 % topical cream 2.5 applic topical BID PRN Rectal 06/20/23 11/24/23 with perineal applicator Discomfort (Proctosol HC) lactobacillus combination no.8 3 3 cell PO DAILY 06/20/23 11/24/23 billion cell capsule tramadol 50 mg tablet 50 mg PO Q6H PRN Pain 06/20/23 11/24/23 triamcinolone acetonide 0.1 % 1 applic topical BID PRN Itching 06/20/23 11/24/23 topical cream blood sugar diagnostic (FreeStyle 11/24/23 11/24/23 Lite Strips) blood-glucose meter (FreeStyle 11/24/23 11/24/23 Jasper Lite kit) empagliflozin 10 mg tablet 10 mg PO DAILY 11/24/23 11/24/23 (Jardiance) finasteride 5 mg tablet 5 mg PO DAILY 11/24/23 11/24/23 lancets 28 gauge (FreeStyle 11/24/23 11/24/23 Lancets) sildenafil 25 mg tablet 25 mg PO DAILY 11/24/23 11/24/23 sitagliptin phos 100 mg-metformin 1 tablet PO DAILY 11/24/23 11/24/23 ER 1,000 mg tablet,extend rel 24h mp (Janumet XR) Allergies Allergy/AdvReac Type Severity Reaction Status Date / Time moisés nile Allergy Unknown Other Verified 11/24/23 13:16 doxycycline Allergy Unknown Other Verified 11/24/23 13:16 formaldehyde Allergy Unknown Other Verified 11/24/23 13:16 fusidic acid Allergy Unknown Other Verified 11/24/23 13:16 nickel Allergy Unknown Other Verified 11/24/23 13:16 gallates Allergy Unknown Other Uncoded 11/24/23 13:16 phenyl salicylate Allergy Unknown Other Uncoded 11/24/23 13:16 band aid AdvReac Mild REDNESS/IRRITATION Uncoded 11/24/23 13:16 AT SITE [facility] Past Medical History Medical History Diabetes GERD (gastroesophageal reflux disease) Hypertension Hypertrophy of prostate Kidney stone Surgical History Surgical History (Reviewed 11/24/23 @ 13:48 by Nati Kilgore To
[2023-11-24 18:13] LABS: Basophils Percent Auto 0.4 % (0.2-1.2); Eosinophils Percent Auto 0.3 % (0-4.4); Hematocrit 45.1 % (42.0-52.0); Hemoglobin 15.6 g/dL (14.0-18.0); Immature Granulocyte Absolute 0.07 K/mm3 (0.00-0.031); Lymphocytes Percent Auto 10.1 % (18.3-44.2); Mean Corpuscular HGB Conc 34.6 g/dl (32-36); Mean Corpuscular Hemoglobin 31.1 pg (26-34); Mean Platelet Volume 9.7 fl (7.4-10.4); Monocytes Absolute Auto 0.6 K/mm3 (0.1-0.6); Monocytes Percent Auto 8.2 % (2.6-8.5); Neutrophils Absolute Auto 5.6 K/mm3 (1.3-6.7); Platelet Count Result 311 k/mm3 (150-375); Red Blood Count 5.01 M/mm3 (4.6-6.20); Red Cell Distribution Width 12.7 % (11.5-14.5)
[2023-11-24 18:23] LABS: Alanine Aminotransferase 34 U/L (6-50); Albumin Level 4.5 g/dL (3.5-5.1); Alkaline Phosphatase 76 U/L (38-126); Anion Gap 10 mmol/L (4-12); Aspartate Amino Transferase 45 U/L (17-59); Bilirubin,Total 0.9 mg/dL (0.2-1.3); Blood Urea Nitrogen 17 mg/dL (9-20); Calcium 9.4 mg/dL (8.4-10.2); Carbon Dioxide 26 mmol/L (22-30); Chloride 102 mmol/L (98-107); Estimated CRCL calculation 48 ml/min; Estimated Glomerular Filt Rate > 60; Glucose 156 mg/dL (65-110); Lipase 135 U/L (23-300); Potassium 4.1 mmol/L (3.4-5.0); Sodium 138 mmol/L (137-145)
[2023-11-24 18:50] LABS: Influenza A QL RT-PCR Negative (Negative); Influenza B QL RT-PCR Negative (Negative); RSV RNA, RT-PCR Negative (Negative); SARS-CoV-2 RNA PCR Negative (Negative)
[2023-11-24 19:25] VITALS: RESP 18; O2SAT 96
[2023-11-24 20:11] LABS: Add Urine Microscopic? YES; Appearance Urine Clear (Clear); Bacteria Urine None Seen /hpf; Bilirubin Urine Negative (Negative); Blood Urine Negative (Negative); Color Urine Yellow (Yellow); Glucose Urine UA 3+ mg/dL (Negative); Ketones Urine 1+ mg/dL (Negative); Leukocyte Esterase Ur Negative LEU/UL (Negative); Nitrate Urine Negative (Negative); Non Pathogenic Casts 0-2; Protein Urine 1+ mg/dL (Negative); RBC Urine 0-2 /hpf (0-2); Specific Grav Ur 1.035 (1.001-1.035); Squamous Epithelial Cell Urine None Seen /hpf (Few); Urobilinogen Urine 0.2 mg/dL (<2.0); WBC Urine 0-5 /hpf (0-3)
[2023-11-24] MEDS: SODIUM CHLORIDE 0.9% IV 1,000 ML 999 ML IV CONT (20:19)
[2023-11-24] MEDS: CIPROFLOXACIN 500 MG TAB PO (22:26)
[2023-11-24] MEDS: metroNIDAZOLE 500 MG TABLET PO (22:26)
[2023-11-24 22:30] VITALS: BP 148/76; PULSE 77; RESP 18; TEMP 36.6; O2SAT 97
== END 2023-11-24 22:31 | disposition home or self-care (01) ==
PROVIDERS: Emergency Provider Physician Assistant
DX: K52.9 Noninfective gastroenteritis and colitis, unspecified (principal); K29.70 Gastritis, unspecified, without bleeding; B34.9 Viral infection, unspecified; I10 Essential (primary) hypertension; E11.9 Type 2 diabetes mellitus without complications; E78.5 Hyperlipidemia, unspecified; K21.9 Gastro-esophageal reflux disease without esophagitis; N40.0 Benign prostatic hyperplasia without lower urinary tract symptoms; Z87.442 Personal history of urinary calculi; Z79.84 Long term (current) use of oral hypoglycemic drugs; Z79.899 Other long term (current) drug therapy
CPT/HCPCS: 36415; 71046; 74177; 80053; 81001; 83690; 85025; 87426; 87637; 87804; 96360; 99284; A9270; J7030; Q9967

== ENCOUNTER 2024-05-13 12:53 | Outpatient (CLI) | payer MEDICARE, OTHER, SELFPAY ==
--- NOTE | ~2024-05-13 | CT_ITS ---
EXAMINATION: CT abdomen pelvis w con DATE: 05/13/2024 13:38 INDICATION: Abdominal pain. TECHNIQUE: Computed tomography (CT) of the abdomen and pelvis was performed with 100 mL Omnipaque 350 intravenous contrast. Automated exposure control and iterative reconstruction technique were employe d. The dose-length product was 282.16 mGy-cm. COMPARISON: CT abdomen and pelvis 11/24/2023 FINDINGS: The visualized portions of the lung bases demonstrate mild atelectasis. No pleural effusion . The heart size is normal. There are coronary artery calcifications. There are calcifications of the aortic valve. No pericardial effusion. The liver, gallbladder, spleen, pancreas, adrenal glands, and kidneys are normal. The prostate is moderately enlarged. There is a left inguinal hernia containing fat. There is diverticulosis of the colon without evidence of diverticulitis. There are no dilated lo ops of bowel. The appendix is normal. There are no pathologically enlarged lymph nodes. There is no f ree intraperitoneal fluid. There is lumbar dextroscoliosis and severe spondylosis. IMPRESSION: 1. Left inguinal hernia containing fat. Reviewed, dictated and finalized at location A.
[2024-05-13 13:36] LABS: Estimated Glomerular Filt Rate 59
--- OUTSIDE RECORDS SUMMARY | 2024-05-13 13:57 | XMS_ITS | Referral Summary ---
Author Organization [facility] Address [address] [place] [address] Care Team Providers Care Foster Winder Name Role Phone Yaw Sigala MD Primary Care Provider [phone] Allergies Active Allergy Reactions Criticality Noted Date Comments Adhesive Rash Medium 04/21/2019 [place] Oil Rash Medium 04/21/2019 Doxycycline Nausea & Vomiting,Rash Medium 04/21/2019 Formaldehyde Rash Medium 04/21/2019 Fusidic Acid Rash Medium 04/21/2019 Nickel Rash Medium 04/21/2019 Phenyl Salicylate Rash Medium 04/21/2019 Medications oxybutynin XL (DITROPAN-XL) 10 mg 24 hr tablet 1 Active aspirin 81 mg enteric coated tablet 1 Active betamethasone dipropionate (DEL-BETA) 0.05 % cream 1 Active FreeStyle Lite Strips strip 1 Active celecoxib (CeleBREX) 100 mg capsule Take 1 capsule (100 mg total) by mouth as needed Active cetirizine (ZyrTEC) 10 mg tablet 1 Active finasteride (PROSCAR) 5 mg tablet Take 1 tablet (5 mg total) by mouth nightly Active ID NOW COVID-19 Test Kit kit TEST DIRECTED 1 Active fluticasone propionate (FLONASE) 50 mcg/actuation nasal spray Administer 1 spray into affected nostril(s) daily Active Proctosol HC 2.5 % rectal cream 1 Active freestyle 28 gauge lancets 1 Active lidocaine (LIDODERM) 5 % 1 Active losartan (COZAAR) 50 mg tablet 1 Active metFORMIN (GLUCOPHAGE) 1,000 mg tablet Take 1 tablet (1,000 mg total) by mouth 2 times daily Active olopatadine (PATANOL) 0.1 % ophthalmic solution Administer 1 drop into affected eye(s) 2 (two) times a day Active omeprazole (PriLOSEC) 40 mg capsule 1 Active sildenafiL (VIAGRA) 25 mg tablet 1 Active tamsulosin (FLOMAX) 0.4 mg extended release capsule 1 Active traMADoL (ULTRAM) 50 mg tablet 1 Active triamcinolone (KENALOG) 0.1 % ointment 1 Active atorvastatin (LIPITOR) 40 mg tablet Take with food/milk.Take or use exactly as directed.Obtai n advice for OTCs.Do not take if .Avoid grapefruit and grapefruit juice. 2 Active solifenacin (VESIcare) 10 mg tablet Take with plenty of water.May impair driving.Samia w whole. 3 Active mirabegron ER (Myrbetriq) 50 mg tablet extended release 24 hr Take 1 tablet (50 mg total) by mouth nightly 3 Active Active Problems Problem Noted Date Diagnosed Date DURGA (obstructive sleep apnea) 08/26/2020 Assessment & Plan (10/22/2023 8:57 AM CDT): Patient continue to wear CPAP at 11 cm water pressure while sleeping. His DME is [facility]. Assessment & Plan (10/15/2022 8:58 AM CDT): Patient continue to wear CPAP at 11 cm water pressure while sleeping. His DME is [facility]. Assessment & Plan (10/16/2021 9:08 AM CDT): The patient continues to benefit from CPAP at 11 cm water pressure. His DME supplier is [facility]. He will follow-up with me in 1 month. Assessment & Plan (08/26/2020 11:26 AM CDT): The patient continues to benefit from CPAP at 11 cm water pressure. His DME is [facility]. He will follow up here in 1 year. 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 Gender Identity Not on file Sexual Orientation Not on file Last Filed Vital Signs Vital Sign Reading Time Taken Comments Blood Pressure 140/62 10/22/2023 8:17 AM CDT Pulse 79 10/22/2023 8:17 AM CDT Temperature 36.7 C (98.1 F) 10/22/2023 8:17 AM CDT Respiratory Rate 18 10/22/2023 8:17 AM CDT Oxygen Saturation 99% 10/22/2023 8:17 AM CDT Inhaled Oxygen Concentration - - Weight 62.1 kg (137 lb) 10/22/2023 8:17 AM CDT Height 162.6 cm (5' 4 ) 10/22/2023 8:17 AM CDT Body Mass Index 23.52 10/22/2023 8:17 AM CDT Plan of Treatment Not on file Insurance [employer] LIFE Care Teams Foster Winder Relationship Specialty Start Date End Date Yaw Sigala MD PCP - General Internal Medicine 09/03/18
--- OUTSIDE RECORDS SUMMARY | 2024-05-13 13:57 | XMS_ITS ---
Author Organization [facility] Address [address] [place], [place] [id number] Care Team Providers Care Lead Mechanical Engineer Name Role Phone GIGI PEACE Unavailable [phone] Patric Ray Unavailable Unavailable REASON FOR VISIT *General care Encounters Encounter Location Date Provider Diagnosis [facility] [place] [address] [place], [place] [id number] 08/02/2023 GIGI PEACE Plan Of Treatment No Information Progress Notes * RICHY WILLAMS WDOB:1950 (74 yo M)Acc No.[id number]:08/02/2023 Patient: RICHY PEPPER Provider: Treva Peace DPM :1950 A ge:73 Y S ex:Male Date:08/02/2023 [address] [id number] Subjective: * Chief Complaints: * 1 . *General care. * Medical History: Objective: * Vitals: Assessment: Plan: * Treatment: * Billing Information: * Visit Code: * Procedure Codes: * Electronic signature of GIGI PEACE DPM on 05/13/2024 at 01:56 PM CDT Sign off status: Pending * Provider: Treva Peace DPM Date: 08/02/2023 Generated for Printi ng/Fakarlog/eTransmitting on: 0 05/13/2024 01:56 PM CDT
--- OUTSIDE RECORDS SUMMARY | 2024-05-13 13:57 | XMS_ITS | Clinical Summary ---
Author Organization [facility] Address [address] [place] [address] Care Team Providers Care Aircraft Cylinder Mechanic Name Role Phone Unavailable Primary Care Provider Unavailabl e Encounters Date Type Department Care Team Description 03/12/2024 External Device Data [facility]CTION Provider, Abstract 03/11/2024 External Device Data [facility] Provider, Abstract 03/10/2024 External Device Data [facility] Provider, Abstract 03/03/2024 External Device Data [facility] Provider, Abstract from Last 3 Months Social History Tobacco Use Types Packs/Day Years Used Date Smoking Tobacco: Never Assessed Sex and Gender Information Value Date Recorded Sex Assigned at Not on file 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 Gender Identity Not on file Sexual Orientation Not on file Plan of Treatment Health Maintenance Due Date Last Done Comments DIABETES ANNUAL FOOT EXAM 04/19/1967 DIABETES MICROALBUMIN ANNUAL SCREEN 04/19/1967 LDL CHOLESTEROL ANNUAL 04/19/1967 COLORECTAL SCREENING 1994 Colorectal Cancer Screening 1994 FIT-DNA Q 3 years 1994 FIT/FOBT Q 1 year 1994 Flex Sig/CT Colonography Q 5 years 1994 DIABETES HBA1C Q 6 MONTHS 08/30/2022 03/02/2022 DTAP/TDAP/TD VACCINES (2 - T d or Tdap) 11/20/2022 11/20/2012 DIABETES ANNUAL RETINAL EXAM 03/22/202303/2022, 03/22/2022, 10/26/2009 INFLUENZA VACCINE (#1) 2023 , 12/18/2021, 03/06/2021, Additional history exists COVID-19 Vaccine ( - 2023-2 5 season) 2023 12/18/2021, 03/06/2021, 05/26/2020, Additional history exists RSV VACCINE (60+ or ) (1 - 1-dose 75+ series) 2024 PNEUMOCOCCAL VACCINE 50+ YEARS Completed 1 , 09/30/2014, 11/20/2012 ZOSTER VACCINE Completed 06/30/2020, 05/2019, 03/24/2010 Insurance [facility]
--- OUTSIDE RECORDS SUMMARY | 2024-05-13 13:57 | XMS_ITS ---
Author Organization [facility] Address [address] [place], [place] [id number] Care Team Providers Care Director Of Operations Support Name Role Phone GIGI PEACE Unavailable [phone] Patric Ray Unavailable Unavailable Allergies Allergen (clinical drug ingredient) Drug/Non Drug Allergy documented on EMR Reaction Allergy Type Onset Date Status Latex Latex Unknown Allergy 03/23/2019 active REASON FOR VISIT Swollen ft Medications Medication SIG (Take, Route, Frequency, Duration) Notes Start Date End Date Status esomeprazole 20 MG Injection INTRAVENOUS esomeprazole 20 MG InjectionOriginal Medicationesomeprazole 20 MG Injection *Reorder from [employer] for eRx and Interaction Alerts* 012 Active hydrochlorothiazide 12.5 MG / losartan potassium 50 MG Oral Tablet [Hyzaar] ORAL hydrochlorothiazide 12.5 MG / losartan potassium 50 MG Oral Tablet [Hyzaar]Original Medicationhydrochlorothiazide 12.5 MG / losartan potassium 50 MG Oral Tablet [Hyzaar] *Reorder from [employer] for eRx and Inter 012 Active cetirizine hydrochloride 10 MG Oral Tablet [Zyrtec] ORAL cetirizine hydrochloride 10 MG Oral Tablet [Zyrtec]Original Medicationcetirizine hydrochloride 10 MG Oral Tablet [Zyrtec] *Reorder from [employer] for eRx and Interaction Alerts* 012 Active hydroxyzine hydrochloride 10 MG Oral Tablet ORAL hydroxyzine hydrochloride 10 MG Oral TabletOriginal Medicationhydroxyzine hydrochloride 10 MG Oral Tablet *Reorder from [employer] for eRx and Interaction Alerts* 012 Active Social History Tobacco Use: Social History Observation Description Date Details (start date - stop date) Never Smoker NA - NA Tobacco Control (Standard) Question Answer Notes Tobacco use: Nonsmoker Vital Signs Height 64 in 05/31/2023 Weight 160 lbs 05/31/2023 BMI 27.46 kg/m2 05/31/2023 Height-cm 162.56 cm 05/31/2023 Weight-kg 72.58 kg 05/31/2023 Encounters Encounter Location Date Provider Diagnosis [facility] [place] [address] [place] [id number] 05/31/2023 GIGI PEACE Fungal infection of nail B35.1 ; Idiopathic gout, 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 05/31/2023 Idiopathic gout, right ankle and foot (ICD-10 - M10.071) 05/31/2023 Pain in right foot (ICD-10 - M79.671) Plan Of Treatment Treatment Notes Assessment Notes Fungal infection of nail Nails 1-5 Bilateral were debrided extensively with nail nippers and emery board, reducing length and girth to pink healthy tissue with any subungual debris and necrotic tissue removed Following skin prep, a total of 3 ccs of a 1-1-1 mix of 0.5% marcaine plain, Kenalog, and dexamethasone sodium phosphate was injected into the patients left first MPJ. Next Appt Details Follow Up: 9 weeks, Reason: Progress Notes * RICHY WILLAMS WDOB:1950 (74 yo M)Acc No.[id number]:05/31/2023 Patient: RICHY PEPPER Provider: Treva Peace DPM :1950 A ge:73 Y S ex:Male Date:05/31/2023 Address:[facility] [address] [address] [facility] Subjective: * Chief Complaints: * S wollen ft * HPI: H PI: New Complaint E stablished patient presents with a new complaint. Patient complains of an issue to his right great toe. He states he has a pin in his toe, and it has bothered him on and off for years. His whole foot is swollen and very painful, and he thinks it might be time to discuss surgery. Duration of problem is 1 week. Patient denies any injury. Patient would also like his nails trimmed. He states he is diabetic. He does not take any blood thinners. MA: jose. * ROS: G eneral / Constitutional: Patient denies c hange in appetite, fatigue, chills, fever.? C ardiovascular: Chest pain d enies. N eurologic: Loss of use of extremity d enies. * Medical History: * Surgical History: * Hospitalization/Major Diagno stic Procedure: * Social History: T obacco Use: T obacco Control (Standard) T obacco use: N onsmoker M igrated Social History: M igrated Social History: History of tobacco use : , Smoking Status : Never smoked. * Medications: T akingcetirizine hydrochloride 10 MG Oral Tablet [Zyrtec] ORAL , Notes to Pharmacist: cetirizine hydrochloride 10 MG Oral Tablet [Zyrtec]Original Medicationcetirizine hydrochloride 10 MG Oral Tablet [Zyrtec] *Reorder from [employer] for eRx and Interaction Alerts*esomeprazole 20 MG Injection INTRAVENOUS , Notes to Pharmacist: esomeprazole 20 MG InjectionOriginal Medicationesomeprazole 20 MG Injection *Reorder from [employer] for eRx and Interaction Alerts*hydrochlorothiazide 12.5 MG / losartan potassium 50 MG Oral Tablet [Hyzaar] ORAL , Notes to Pharmacist: hydrochlorothiazide 12.5 MG / losartan potassium 50 MG Oral Tablet [Hyzaar]Original Medicationhydrochlorothiazide 12.5 MG / losartan potassium 50 MG Oral Tablet [Hyzaar] *Reorder from [employer] for eRx and Interhydroxyzine hydrochloride 10 MG Oral Tablet ORAL , Notes to Pharmacist: hydroxyzine hydrochloride 10 MG Oral TabletOriginal Medicationhydroxyzine hydrochloride 10 MG Oral Tablet *Reorder from [facility] for eRx and Interaction Alerts*Medication List reviewed and reconciled with the patientTaking cetirizine hydrochloride 10 MG Oral Tablet [Zyrtec] ORAL , Notes to Pharmacist: cetirizine hydrochloride 10 MG Oral Tablet [Zyrtec]Original Medicationcetirizine hydrochloride 10 MG Oral Tablet [Zyrtec] *Reorder from [facility] for eRx and Interaction Alerts*Taking esomeprazole 20 MG Injection INTRAVENOUS , Notes to Pharmacist: esomeprazole 20 MG InjectionOriginal Medicationesomeprazole 20 MG Injection *Reorder from [facility] for eRx and Interaction Alerts*Taking hydrochlorothiazide 12.5 MG / losartan potassium 50 MG Oral Tablet [Hyzaar] ORAL , Notes to Pharmacist: hydrochlorothiazide 12.5 MG / losartan potassium 50 MG Oral Tablet [Hyzaar]Original Medicationhydrochlorothiazide 12.5 MG / losartan potassium 50 MG Oral Tablet [Hyzaar] *Reorder from [facility] for eRx and InterTaking hydroxyzine hydrochloride 10 MG Oral Tablet ORAL , Notes to Pharmacist: hydroxyzine hydrochloride 10 MG Oral TabletOriginal Medicationhydroxyzine hydrochloride 10 MG Oral Tablet *Reorder from [facility] for eRx and Interaction Alerts*Medication List reviewed and reconciled with the patient * Allergies: L atex: Allergy - Onset Date 03/23/2019 Objective: * Vitals: W t:160lbs, Wt-k.58 kg, Ht: 64 in, Ht-cm: 162.56 cm, BMI:27.46Index, Body Surface Area: 1.81. * Examination: P hysical Examination: Gen: T he patient is awake, alert, well developed, well groomed and well nourished. They are in no apparent distress. . Musc: F oot structure is normal bilateral. Muscle strength is 5/5 to all joints bilaterally. Pain on palpation of 1st left metatarsal phalangeal joint. . Derm: T here is absent hair growth on bilateral feet. There are pigmentary changes of bilateral foot. The skin color is red. The skin texture is thin and shiny. Distal cooling noted in bilateral feet. Nails are thick, discolored, and dystrophic with subungual debris. They are painful to palpation. . Neuro: G rossly intact to light touch bilateral . Vasc: P osterior tibialis pulse 0/4 bilaterally. Dorsalis pedis pulse 0/4 bilaterally. No edema noted. Capillary fill time > 3 seconds to all digits. . X -Ray: LEFT FOOT X -rays reveal good correction of the deformities and position of the osteotomies. All hardware is in good position. . Assessment: * Assessment: 1. F ungal infection of nail - B35.1 (Primary) 2 . I diopathic gout, right ankle and foot - M10.071 3 . P ain in right foot - M79.671 Plan: * Treatment: * Immunizations: Immunization record has been reviewed and updated. * Procedure Codes: 2 0600 DRAIN/INJECT, JOINT/BURSA, Modifiers: [place] [address] X-RAY EXAM OF FOOT, Modifiers: RT * Follow Up: 9 weeks * Billing Information: * Visit Code: 70357 Office Visit, Est Pt., Level 3. Modifiers: 25 * Procedure Codes: 46189 DRAIN/INJECT, JOINT/BURSA. Modifiers: [place] [address]24 X-RAY EXAM OF FOOT. Modifiers: RT * Sign off status: Completed true * Provider: Treva Peace DPM Date: 0 05/31/2023 Generated for Carlie Kc/Angelia on: 0 05/13/2024 01:57 PM CDT History and Physical Notes * HPI (History of Present Illness) Category Sub-Category Detail Notes Category Not es HPI New Complaint Established reanna ent presents with a new complaint. Patient complains of an issue to his right great toe. He states he has a pin in his toe, and it has bothered him on and off for years. His whole foot is swollen and very painful, and he thinks it might be time to discuss surgery. Duration of problem is 1 week. Patient denies any injury. Patient would also like his nails trimmed. He states he is diabetic. He does not take any blood thinners. MA: sea Examination Category Sub-Category Detail Notes Category Not es X-Ray LEFT FOOT X-rays reveal go od correction of the deformities and position of the osteotomies. All hardware is in good position. Physical Examination Gen: The patient is awake, alert, well developed, well groomed and well nourished. They are in no apparent distress. Vasc: Posterior tibialis p ulse 0/4 bilaterally. Dorsalis pedis pulse 0/4 bilaterally. No edema noted. Capillary fill time > 3 seconds to all digits. Neuro: Grossly intact to li ght touch bilateral Musc: Foot structure is no rmal bilateral. Muscle strength is 5/5 to all joints bilaterally. Pain on palpation of 1st left metatarsal phalangeal joint. Derm: There is absent hair growth on bilateral feet. There are pigmentary changes of bilateral foot. The skin color is red. The skin texture is thin and shiny. Distal cooling noted in bilateral feet. Nails are thick, discolored, and dystrophic with subungual debris. They are painful to palpation.
--- OUTSIDE RECORDS SUMMARY | 2024-05-13 13:57 | XMS_ITS | Patient Health Record ---
Author Organization [facility] Address [address] [place], [place] [id number] Care Team Providers Care Diesel Electrician Name Role Phone GIGI CROOKS Unavailable [phone] Patric Ray Unavailable Unavailable Allergies Allergen (clinical drug ingredient) Drug/Non Drug Allergy documented on EMR Reaction Allergy Type Onset Date Status Latex Latex Unknown Allergy 03/23/2019 active Reason For Referral No Information Medications Medication SIG (Take, Route, Frequency, Duration) Notes Start Date End Date Status esomeprazole 20 MG Injection INTRAVENOUS esomeprazole 20 MG InjectionOriginal Medicationesomeprazole 20 MG Injection *Reorder from [employer] for eRx and Interaction Alerts* 012 Active hydrochlorothiazide 12.5 MG / losartan potassium 50 MG Oral Tablet [Hyzaar] ORAL hydrochlorothiazide 12.5 MG / losartan potassium 50 MG Oral Tablet [Hyzaar]Original Medicationhydrochlorothiazide 12.5 MG / losartan potassium 50 MG Oral Tablet [Hyzaar] *Reorder from [employer] for eRx and Inter 012 Active cetirizine hydrochloride 10 MG Oral Tablet [Zyrtec] ORAL cetirizine hydrochloride 10 MG Oral Tablet [Zyrtec]Original Medicationcetirizine hydrochloride 10 MG Oral Tablet [Zyrtec] *Reorder from [employer] for eRx and Interaction Alerts* 012 Active hydroxyzine hydrochloride 10 MG Oral Tablet ORAL hydroxyzine hydrochloride 10 MG Oral TabletOriginal Medicationhydroxyzine hydrochloride 10 MG Oral Tablet *Reorder from [employer] for eRx and Interaction Alerts* 012 Active Social History Tobacco Use: Social History Observation Description Date Details (start date - stop date) Never Smoker NA - NA Tobacco Control (Standard) Question Answer Notes Tobacco use: Nonsmoker Vital Signs Height-cm 162.56 cm 05/31/2023 Weight-kg 72.58 kg 05/31/2023 Height 64 in 05/31/2023 Weight 160 lbs 05/31/2023 BMI 27.46 kg/m2 05/31/2023 Encounters Encounter Location Date Provider Diagnosis [facility] [place] [address] [place], [place] [id number] 05/31/2023 GIGI CROOKS Fungal infection of nail B35.1 ; Idiopathic gout, 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 05/31/2023 Pain in right foot (ICD-10 - M79.671) Plan Of Treatment No Information Insurance Providers Payer Name Payer Address Payer Phone Subscriber Number Group Number Insured Name Patient Relationship to Insured Coverage Start Date Coverage End Date Medicare Part B [facility] [address] [place] [address] [id number] RICHY WILLAMS Self - patient is the insured for Life ([employer]) [address] [place], [place] [id number] RICHY WILLAMS Self - patient is the insured
--- OUTSIDE RECORDS SUMMARY | 2024-05-13 13:57 | XMS_ITS | Clinical Summary ---
Author Organization [facility] Address [address] [place] [address] Care Team Providers Care Aircraft Quality Control Inspector Name Role Phone Bubba Mcknight MD Primary Care Provider [phone] Allergies Active Allergy Reactions Criticality Noted Date Comments Balsam [place] Oil Rash Low 04/21/2019 Doxycycline Rash Low 04/21/2019 Formaldehyde Rash Low 04/21/2019 Fusidic Acid Rash Low 04/21/2019 Nickel Rash Low 04/21/2019 Phenylsalicylate Rash Low 04/21/2019 Tape Rash Low 04/21/2019 Medications losartan 50 MG tablet Take 50 mg by mouth daily. Active aspirin EC (ASPIRIN EC) 81 MG tablet Take 81 mg by mouth daily. Active metFORMIN 1000 MG tablet Take 1,000 mg by mouth 2 (two) times daily with meals. Active tamsulosin 0.4 MG Cap Take 0.4 mg by mouth daily. Active finasteride 5 MG tablet Take 5 mg by mouth nightly. Active oxybutynin 5 MG tablet Take 5 mg by mouth daily. Active omeprazole 40 MG capsule Take 40 mg by mouth daily. Active celecoxib 100 MG capsule Take 100 mg by mouth as needed for Pain. Active traMADol 50 MG tablet Take 50 mg by mouth every 6 (six) hours as needed for Pain. Active fluticasone propionate 50 MCG/ACT nasal spray 1 spray by Nasal route daily. Active olopatadine 0.1 % ophthalmic solution Place 1 drop into both eyes 2 (two) times daily. Active Active Problems No known active problems Social History Tobacco Use Types Packs/Day Years Used Date Smoking Tobacco: Never Smokeless Tobacco: Never Alcohol Use Standard Drinks/Week Comments Not Currently 0 (1 standard drink = 0.6 oz pur e alcohol) Sex and Gender Information Value Date Recorded Sex Assigned at Not on file Legal Sex Male 7:10 PM CDT Gender Identity Not on file Sexual Orientation Not on file Last Filed Vital Signs Vital Sign Reading Time Taken Comments Blood Pressure 109/72 04/27/2019 8:32 AM CDT Pulse 66 04/27/2019 8:32 AM CDT Temperature 36.4 C (97.5 F) 04/27/2019 8:32 AM CDT Respiratory Rate 16 04/27/2019 8:32 AM CDT Oxygen Saturation 97% 04/27/2019 8:32 AM CDT Inhaled Oxygen Concentration - - Weight 72.6 kg (160 lb) 04/27/2019 7:36 AM CDT Height 162.6 cm (5' 4 ) 04/27/2019 7:36 AM CDT Body Mass Index 27.46 04/27/2019 7:36 AM CDT Plan of Treatment Health Maintenance Due Date Last Done Comments Colorectal Cancer Screening Colonoscopy (10 Years) 1950 Hepatitis C 04/19/1967 Annual Medicare Wellness Visit 2014 DTaP, Tdap and Td Vaccines (2 - Td or Tdap) 11/20/2022 11/20/2012, 08/05/2004, 04/26/2001, Additional history exists COVID-19 Vaccine ( season) 2023 09/03/2022, 12/18/2021, 12/18/2021, Additional history exists Influenza Adult (#1) 2023 11/18/2022, 01/22/2020, 02/05/2019, Additional history exists RSV Immunization or 60+ Years (1 - 1-dose 75+ series) 2024 Pneumococcal Vaccine: 65+ Years Completed 12/09/2017, 09/30/2014, 11/20/2012 Zoster Vaccines Completed 07/18/2020, 06/18, 01/22/2020, Additional history exists Meningococcal B Vaccine Aged Out No l onger eligible based on patient's age to complete this topic Meningococcal Vaccine Aged Out No padmini candida eligible based on patient's age to complete this topic RSV Immunizations Under 20 Months Aged Out No longer eligible based on patient's age to complete this topic Medical Devices Implanted Type Area Diagnostic Cardiac Sonographer Device Identifier Shelf Expiration Date Model / Serial / Lot Iol [employer] Zcboo - [id number] Implanted:Qty: 1 on 04/27/2019 by Harsha Castelan MD at [facility] [employer] 07/30/2021 [id number] / [id number] / [place] [address] MEDICARE [place] [facility] Care Teams Aircraft Quality Control Inspector Relationship Specialty Start Date End Date Bubba Mcknight MD [address] [facility] [address] [place] [address] PCP - General INTERNAL MEDICINE 12/17/23
--- OUTSIDE RECORDS SUMMARY | 2024-05-13 13:57 | XMS_ITS | Clinical Summary ---
Author Organization [facility] Address [address] [place] [address] Care Team Providers Care Master Sonar Technician Name Role Phone Yaw Sigala MD Primary Care Provider [phone] Allergies Active Allergy Reactions Criticality Noted Date Comments Adhesive Rash Medium 04/21/2019 Balsam [place] Oil Rash Medium 04/21/2019 Doxycycline Nausea & [...] cm water pressure. His DME supplier is [employer]. He will follow-up with me in 1 month. Assessment & Plan (08/26/2020 11:26 AM CDT): The patient continues to benefit from CPAP at 11 cm water pressure. His DME is [facility]. He will follow up here in 1 year. 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 Gender Identity Not on file Sexual Orientation Not on file Obstetrics History Last Filed Vital Signs Vital Sign Reading [...] 10/22/2023 8:17 AM CDT Plan of Treatment Health Maintenance Due Date Last Done Comments Colon Cancer Screening-Colonoscopy 1950 Depression Screening 1950 Fall Risk Assessment 1950 Hepatitis C Screening 1950 Hepatitis B Screening 04/19/1967 Well Visit 65+ 2014 DTaP/Tdap/Td Vaccine (2 - Td or Tdap) 11/20/2022 11/20/2012, 08/05/2004, 04/26/2001, Additional history exists Covid-19 Vaccine (2023-2 5 season) 2023 03/06/2021, 05/26/2020, 05/05/2020 Influenza Vaccine (#1) 2023 , 02/05/2019, 12/09/2017, Additional history exists Pneumococcal vaccine 65+ Completed 018, 09/30/2014, 11/20/2012 Zoster Vaccine Completed 06/30/2020, 05/2019, 03/24/2010 Insurance [employer] FOR [employer] MEDICARE FOR LIFE Care Teams Master Sonar Technician Relationship Specialty Start Date End Date Yaw Sigala MD PCP - General Internal Medicine 09/03/18
--- OUTSIDE RECORDS SUMMARY | 2024-05-13 13:57 | XMS_ITS ---
Author Organization [facility] Address [address] [place], [place] [id number] Care Team Providers Care Supplier Development Manager Name Role Phone GIGI PEACE Unavailable [phone] Patric Ray Unavailable Unavailable REASON FOR VISIT Gout injection follow-up Encounters Encounter Location Date Provider Diagnosis [facility] [place] [address] [place], [place] [id number] 06/28/2023 GIGI PEACE Plan Of Treatment No Information Progress Notes * RICHY WILLAMS WDOB:1950 (74 yo M)Acc No.[id number]:06/28/2023 Patient: RICHY PEPPER Provider: Treva Peace DPM :1950 A ge:73 Y S ex:Male Date:06/28/2023 Address[address] [id number] Subjective: * Chief Complaints: * 1 . Gout injection follow-up. * Medical History: Objective: * Vitals: Assessment: Plan: * Treatment: * Billing Information: * Visit Code: * Procedure Codes: * Electronic signature of GIGI PEACE DPM on 05/13/2024 at 01:57 PM CDT Sign off status: Pending * Provider: Treva Peace DPM Date: 06/28/2023 Generated for Printi ng/Faxing/eTransmitting on: 05/13/2024 01:57 PM CDT
== END 2024-05-13 12:54 | disposition home or self-care (01) ==
PROVIDERS: PCP Internal Medicine; Visit Provider Internal Medicine Gastroenterology
DX: R10.84 Generalized abdominal pain (principal); R10.9 Unspecified abdominal pain; K40.90 Unilateral inguinal hernia, without obstruction or gangrene, not specified as recurrent
CPT/HCPCS: 74177; Q9967